=== PATIENT | female | born 1960 | race Caucasian/White ===

== ENCOUNTER → 2016-03-10 | Outpatient (CLI) | payer BC ==
[~2016-03-10] MED LIST: CARI-277 PO; GABA100C PO; LORA-655 OR
[2016-03-10 09:33] LABS: Basophils # (auto) 0 uL; Basophils % (auto) 0.3 % (0.0-2.0); DEFINITIVE VIEW TRANSMISSION; Eosinophils # (auto) 0.1 uL; Eosinophils % (auto) 2.2 % (0.0-7.0); Hemoglobin 13.3 g/dL (12.2-16.2); Lymphocytes % (auto) 25.8 % (10.0-50.0); Mean Corpuscular Hemoglobin 35.4 pg (28.0-32.0); Mean Corpuscular Hgb Conc. 34.1 g/dL (32.0-36.0); Mean Platelet Volume 7.5 fL (7.4-10.4); Monocytes # (auto) 0.3 uL; Monocytes % (auto) 7.9 % (0.0-12.0); Neutrophils # (auto) 2.4 uL; Neutrophils % (auto) 63.8 % (37.0-80.0); Platelet Count (auto) 291 10^3/uL (140-450); Red Cell Distribution Width 14.6 % (11.6-16.0); White Blood Cell 3.7 10^3/uL (4.4-10.8)
[2016-03-10 09:42] LABS: Albumin 3.8 g/dL (3.4-5.0); BUN/Creatinine Ratio 27.4; Bilirubin, Total 0.5 mg/dL (0.2-1.0); Calcium 8.4 mg/dL (8.5-10.1); Potassium 3.9 mmol/L (3.5-5.1); Total Protein 8.2 g/dL (6.4-8.2)
[2016-03-10 10:00] LABS: Urine Bilirubin Negative (Negative); Urine Blood TRACE /uL (Negative); Urine Color Yellow (Yellow); Urine Glucose Normal (Normal); Urine Ketone Negative (Negative); Urine Mucus FEW (None Seen); Urine Nitrite Negative (Negative); Urine RBC 6 /hpf (0 - 4); Urine Squamous Epithelial Cell FEW /hpf (<5); Urine Urobilinogen Normal (Negative)
== END | disposition home or self-care (01) ==
LOC: LAB 08:40
DX: F41.9 Anxiety disorder, unspecified (principal); M79.7 Fibromyalgia; M05.9 Rheumatoid arthritis with rheumatoid factor, unspecified; D64.9 Anemia, unspecified; M06.9 Rheumatoid arthritis, unspecified; I10 Essential (primary) hypertension; M25.50 Pain in unspecified joint
CPT/HCPCS: 36415; 80053; 80061; 81001; 82306; 82607; 83036; 84443; 85025; 85049; 85652; 86141

== ENCOUNTER → 2016-04-14 | Outpatient (CLI) | payer BC ==
[~2016-04-14] MED LIST changes: +IBU800T PO; +TOPI25TA84 PO
[2016-04-14 09:34] LABS: Urine Bilirubin Negative (Negative); Urine Blood TRACE /uL (Negative); Urine Color Yellow (Yellow); Urine Glucose Normal (Normal); Urine Ketone Negative (Negative); Urine Mucus FEW (None Seen); Urine Nitrite Negative (Negative); Urine RBC 3 /hpf (0 - 4); Urine Squamous Epithelial Cell FEW /hpf (<5); Urine Urobilinogen Normal (Negative)
[2016-04-14 09:43] LABS: INR 1.04 (0.9-1.15); Partial Thromboplastin Time 27.1 sec (22.64-33.71); Prothrombin Time 10.7 sec (9.37-12.3)
[2016-04-14 09:59] LABS: Albumin 3.5 g/dL (3.4-5.0); BUN/Creatinine Ratio 26.8; Bilirubin, Total 0.3 mg/dL (0.2-1.0); Calcium 8.4 mg/dL (8.5-10.1); Potassium 3.6 mmol/L (3.5-5.1); Total Protein 8.1 g/dL (6.4-8.2)
[2016-04-14 10:17] LABS: Basophils # (auto) 0 uL; Basophils % (auto) 0.7 % (0.0-2.0); DEFINITIVE VIEW TRANSMISSION; Eosinophils # (auto) 0.1 uL; Eosinophils % (auto) 2.3 % (0.0-7.0); Hematocrit 38.2 % (36.0-46.0); Hemoglobin 12.9 g/dL (12.2-16.2); Lymphocytes % (auto) 27.9 % (10.0-50.0); Mean Corpuscular Hemoglobin 35.5 pg (28.0-32.0); Mean Corpuscular Hgb Conc. 33.7 g/dL (32.0-36.0); Mean Corpuscular Volume 105.5 fL (80.0-100.0); Mean Platelet Volume 7.7 fL (7.4-10.4); Monocytes # (auto) 0.3 uL; Monocytes % (auto) 8.4 % (0.0-12.0); Neutrophils # (auto) 2.2 uL; Neutrophils % (auto) 60.7 % (37.0-80.0); Platelet Count (auto) 261 10^3/uL (140-450); Red Cell Distribution Width 14.2 % (11.6-16.0); White Blood Cell 3.6 10^3/uL (4.4-10.8)
== END | disposition home or self-care (01) ==
LOC: LAB 08:49
PROVIDERS: ATTEND Internal Medicine Gastroenterology
DX: Z01.812 Encounter for preprocedural laboratory examination (principal)
CPT/HCPCS: 36415; 80053; 81001; 85025; 85610; 85730

== ENCOUNTER → 2016-04-18 | Day surgery (SDC) | payer BC ==
[~2016-04-18] VITALS: Ht 162.6 cm; Wt 79.4 kg
[~2016-04-18] MED LIST changes: +MIDAZOLAM HCL 1MG/1ML-2 ML VIAL ONE; +PROPOFOL 10 MG/ML 20 ML IV ONE; +fentaNYL CITRATE 100 MCG/2 ML VL ONE
[2016-04-18 10:05] VITALS: BP 127/75
== END | disposition home or self-care (01) ==
LOC: GI 07:34
PROVIDERS: ATTEND Internal Medicine Gastroenterology
DX: K44.9 Diaphragmatic hernia without obstruction or gangrene (principal); E66.9 Obesity, unspecified; F41.9 Anxiety disorder, unspecified
CPT/HCPCS: 43239; J2250; J2704

== ENCOUNTER 2016-07-26 16:23 | Emergency (ER) | payer BC ==
[~2016-07-26] VITALS: Ht 160 cm; Wt 78.0 kg
[~2016-07-26 16:23] MED LIST changes: -IBU800T PO; +IBUP800T24 PO; -MIDAZOLAM HCL 1MG/1ML-2 ML VIAL ONE; -PROPOFOL 10 MG/ML 20 ML IV ONE; -fentaNYL CITRATE 100 MCG/2 ML VL ONE
[2016-07-26] MEDS: HYDROmorphone HCL 2 MG/ML VL IV ONE ×2 (16:46→19:38)
[2016-07-26] MEDS: ONDANSETRON HCL 4 MG/2 ML VIAL IV ONE (16:46)
[2016-07-26 17:31] LABS: Basophils # (auto) 0 uL; Basophils % (auto) 0.4 % (0.0-2.0); DEFINITIVE VIEW TRANSMISSION; Eosinophils # (auto) 0 uL; Hematocrit 37.8 % (36.0-46.0); Hemoglobin 12.9 g/dL (12.2-16.2); Lymphocytes # (auto) 1.8 uL; Lymphocytes % (auto) 38.4 % (10.0-50.0); Mean Corpuscular Hemoglobin 35.7 pg (28.0-32.0); Mean Corpuscular Hgb Conc. 34.1 g/dL (32.0-36.0); Mean Corpuscular Volume 104.5 fL (80.0-100.0); Mean Platelet Volume 7.9 fL (7.4-10.4); Monocytes # (auto) 0.3 uL; Monocytes % (auto) 6.1 % (0.0-12.0); Neutrophils # (auto) 2.5 uL; Neutrophils % (auto) 54.1 % (37.0-80.0); Platelet Count (auto) 297 10^3/uL (140-450); Red Cell Distribution Width 14.2 % (11.6-16.0); White Blood Cell 4.7 10^3/uL (4.4-10.8)
[2016-07-26 17:42] LABS: Alkaline Phosphatase 87 U/L (45-117); Anion Gap 10 (5-15); Aspartate Aminotransferase 33 U/L (15-37); BUN/Creatinine Ratio 36.9; Bilirubin, Total 0.4 mg/dL (0.2-1.0); Blood Urea Nitrogen 24 mg/dL (7-18); Calcium 8.5 mg/dL (8.5-10.1); Carbon Dioxide 25 mmol/L (21-32); Chloride 102 mmol/L (98-107); GFR African American 122 mL/min; GFR Non-African American 101 mL/min; Glucose 107 mg/dL (74-106); Potassium 3.7 mmol/L (3.5-5.1); Sodium 137 mmol/L (136-145); Total Protein 8.3 g/dL (6.4-8.2)
[2016-07-26] MEDS: IOHEXOL 300 MG/ML 100ML BOTTLE IJ ONE (18:17)
[2016-07-26 18:36] VITALS: BP 148/70
[2016-07-26 19:24] LABS: Macrocytosis Slight; Platelet Estimate Adequate
== END 2016-07-26 19:47 | disposition home or self-care (01) ==
LOC: EDUNIT# 16:23 → EDBD 16:23 → ER 16:51
DX: S22.32XA Fracture of one rib, left side, initial encounter for closed fracture (principal); R11.0 Nausea; Z88.8 Allergy status to other drugs, medicaments and biological substances; Z79.899 Other long term (current) drug therapy; M06.9 Rheumatoid arthritis, unspecified; M54.9 Dorsalgia, unspecified; M25.519 Pain in unspecified shoulder; Z90.710 Acquired absence of both cervix and uterus; V43.62XA Car passenger injured in collision with other type car in traffic accident, initial encounter; Y93.89 Activity, other specified; Y92.89 Other specified places as the place of occurrence of the external cause; Y99.8 Other external cause status; Z85.41 Personal history of malignant neoplasm of cervix uteri
CPT/HCPCS: 36415; 71260; 74177; 80053; 84484; 85025; 93005; 94761; 96374; 96375; 96376; 99285; J1170; J2405; Q9967

== ENCOUNTER → 2016-08-31 | Outpatient (CLI) | payer BC | END | disposition home or self-care (01) | LOC: XYW 08:09 | PROVIDERS: ATTEND Internal Medicine Cardiovascular Disease | DX: R00.2 Palpitations (principal) | CPT/HCPCS: 93306 ==

== ENCOUNTER → 2017-02-02 | Outpatient (CLI) | payer BC | END | disposition home or self-care (01) | LOC: LAB 09:43 | PROVIDERS: ATTEND Internal Medicine Cardiovascular Disease | DX: I10 Essential (primary) hypertension (principal); R07.89 Other chest pain | CPT/HCPCS: 36415; 85379 ==

== ENCOUNTER → 2017-06-15 | Outpatient (CLI) | payer BC ==
[2017-06-15 08:24] LABS: Basophils # (auto) 0 uL; Eosinophils # (auto) 0.1 uL; White Blood Cell 3.6 10^3/uL (4.4-10.8)
[2017-06-15 08:26] LABS: Eosinophils % (auto) 3.7 % (0.0-7.0); Hematocrit 39.5 % (36.0-46.0); Hemoglobin 13.3 g/dL (12.2-16.2); Lymphocytes % (auto) 28.9 % (10.0-50.0); Mean Corpuscular Hemoglobin 36.4 pg (28.0-32.0); Mean Corpuscular Hgb Conc. 33.7 g/dL (32.0-36.0); Mean Corpuscular Volume 108.2 fL (80.0-100.0); Monocytes # (auto) 0.4 uL; Neutrophils % (auto) 56.4 % (37.0-80.0); Nucleated Red Blood Cells % 0.2 %; Platelet Count (auto) 253 10^3/uL (140-450); Red Blood Cells 3.65 10^6/uL (4.0-5.20); Red Cell Distribution Width 13.5 % (11.8-14.3)
[2017-06-15 08:45] LABS: Albumin 3.8 g/dL (3.4-5.0); BUN/Creatinine Ratio 22.2; Bilirubin, Total 0.5 mg/dL (0.2-1.0); Calcium 8.9 mg/dL (8.5-10.1); Total Protein 8.4 g/dL (6.4-8.2)
[2017-06-15 08:51] LABS: Urine Bacteria NONE SEEN /hpf (None Seen); Urine Blood 1+ /uL (Negative); Urine Mucus FEW (None Seen); Urine Specific Gravity 1.027 (1.001-1.035); Urine WBC <1 /hpf (0 - 5)
== END | disposition home or self-care (01) ==
LOC: LAB 07:38
PROVIDERS: ATTEND Physician Assistant
DX: I10 Essential (primary) hypertension (principal); M25.50 Pain in unspecified joint; E55.9 Vitamin D deficiency, unspecified; M79.2 Neuralgia and neuritis, unspecified
CPT/HCPCS: 36415; 80053; 80061; 81001; 82306; 85025

== ENCOUNTER 2018-08-06 13:50 | Emergency (ER) | payer BC ==
[~2018-08-06] VITALS: Ht 162.6 cm; Wt 77.1 kg
[2018-08-06 14:54] VITALS: BP 118/61
== END 2018-08-06 15:08 | disposition home or self-care (01) ==
LOC: EEVIPCON 13:50 → ER 13:54
DX: S52.501A Unspecified fracture of the lower end of right radius, initial encounter for closed fracture (principal); Z88.1 Allergy status to other antibiotic agents; Z90.710 Acquired absence of both cervix and uterus; W01.0XXA Fall on same level from slipping, tripping and stumbling without subsequent striking against object, initial encounter; Y93.89 Activity, other specified; Y99.8 Other external cause status; Y92.002 Bathroom of unspecified non-institutional (private) residence as the place of occurrence of the external cause
CPT/HCPCS: 29125; 73110

== ENCOUNTER → 2018-10-09 | Outpatient (CLI) | payer BC ==
[2018-10-09 10:41] LABS: Basophils # (auto) 0 uL; Lymphocytes # (auto) 0.7 uL; Monocytes # (auto) 0.3 uL; Neutrophils # (auto) 2.1 uL; Nucleated Red Blood Cells % 0.2 %; White Blood Cell 3.2 10^3/uL (4.4-10.8)
[2018-10-09 10:43] LABS: Basophils % (auto) 0.7 % (0.0-2.0); Eosinophils # (auto) 0.1 uL; Eosinophils % (auto) 1.6 % (0.0-7.0); Hematocrit 41.2 % (36.0-46.0); Hemoglobin 14.2 g/dL (12.2-16.2); Lymphocytes % (auto) 22.4 % (10.0-50.0); Mean Corpuscular Hemoglobin 36.3 pg (28.0-32.0); Mean Corpuscular Hgb Conc. 34.4 g/dL (32.0-36.0); Mean Corpuscular Volume 105.6 fL (80.0-100.0); Monocytes % (auto) 9.8 % (0.0-12.0); Neutrophils % (auto) 65.5 % (37.0-80.0); Platelet Count (auto) 321 10^3/uL (140-450); Red Cell Distribution Width 14.3 % (11.8-14.3)
[2018-10-09 11:17] LABS: Free T4 (Free Thyroxine) 0.88 ng/dL (0.89-1.76)
[2018-10-09 11:18] LABS: T3 Total 0.83 ng/mL (0.60-1.81)
[2018-10-09 11:24] LABS: Potassium 3.7 mmol/L (3.5-5.1)
[2018-10-09 11:30] LABS: Albumin 3.5 g/dL (3.4-5.0); BUN/Creatinine Ratio 14.8; Bilirubin, Total 0.6 mg/dL (0.2-1.0); Calcium 8.8 mg/dL (8.5-10.1); Total Protein 8.7 g/dL (6.4-8.2)
== END | disposition home or self-care (01) ==
LOC: LAB 10:03
PROVIDERS: ATTEND Physician Assistant
DX: R42 Dizziness and giddiness (principal); I10 Essential (primary) hypertension
CPT/HCPCS: 36415; 80053; 84439; 84443; 84480; 85025; 85652; 86038; 86200; 86431

== ENCOUNTER 2019-11-23 13:28 | Emergency (ER) | payer BC, OTHER ==
[~2019-11-23] VITALS: Ht 162.6 cm; Wt 79.4 kg
[2019-11-23 13:39] VITALS: BP 148/99
[2019-11-23] MEDS ORDERED: HYDROcodone-ACET 7.5/325MG TAB PO ONE (14:15)
[2019-11-23] MEDS ORDERED: KETOROLAC TROMETH 60MG/2ML VIAL IM ONE (14:15)
[2019-11-23] MEDS ORDERED: HYDROcodone-ACET 10/325MG TAB PO ONE (14:30)
== END 2019-11-23 14:55 | disposition home or self-care (01) ==
LOC: ER 13:28
DX: S22.41XA Multiple fractures of ribs, right side, initial encounter for closed fracture (principal); S46.811A Strain of other muscles, fascia and tendons at shoulder and upper arm level, right arm, initial encounter; N30.00 Acute cystitis without hematuria; K76.0 Fatty (change of) liver, not elsewhere classified; Z88.8 Allergy status to other drugs, medicaments and biological substances; Z79.899 Other long term (current) drug therapy; Z90.710 Acquired absence of both cervix and uterus; Z85.41 Personal history of malignant neoplasm of cervix uteri; W01.198A Fall on same level from slipping, tripping and stumbling with subsequent striking against other object, initial encounter; Y93.89 Activity, other specified; Y92.89 Other specified places as the place of occurrence of the external cause; Y99.8 Other external cause status
CPT/HCPCS: 71250; 73030; 74176; 81002; 96372; 99285; J1885

== ENCOUNTER 2021-12-19 19:51 | Emergency (ER) | payer BC, OTHER ==
[~2021-12-19] VITALS: Ht 160 cm; Wt 77.2 kg
[2021-12-19 19:51] VITALS: BP 133/94
[~2021-12-19 19:51] MED LIST changes: -IBUP800T24 PO; +IBUP800T26 PO
[2021-12-19] MEDS ORDERED: ONDANSETRON ODT 4 MG TAB PO ONE (20:45)
[2021-12-19 20:55] LABS: Basophils # (auto) 0 10 ^3/uL (0-0.2); Eosinophils # (auto) 0 10 ^3/uL (0-0.8); Hemoglobin 14.7 g/dL (12.2-16.2); Mean Corpuscular Volume 108.6 fL (80.0-100.0); Monocytes # (auto) 0.2 10 ^3/uL (0-1.3); Neutrophils # (auto) 2.3 10 ^3/uL (1.6-8.6); Nucleated Red Blood Cells % 0.1 %
[2021-12-19 20:57] LABS: Basophils % (auto) 0.4 % (0.0-2.0); Eosinophils % (auto) 1.1 % (0.0-7.0); Hematocrit 42.2 % (36.0-46.0); Lymphocytes # (auto) 0.6 10 ^3/uL (0.4-5.4); Lymphocytes % (auto) 17.6 % (10.0-50.0); Mean Corpuscular Hemoglobin 37.9 pg (28.0-32.0); Mean Corpuscular Hgb Conc. 34.9 g/dL (32.0-36.0); Monocytes % (auto) 7.5 % (0.0-12.0); Neutrophils % (auto) 73.4 % (37.0-80.0); Red Blood Cells 3.89 10^6/uL (4.0-5.20); Red Cell Distribution Width 14.1 % (11.8-14.3); White Blood Cell 3.2 10^3/uL (4.4-10.8)
[2021-12-19 21:13] LABS: Albumin 3.6 g/dL (3.4-5.0); Calcium 8.7 mg/dL (8.5-10.1); Potassium 3.7 mmol/L (3.5-5.1)
[2021-12-19 21:17] LABS: BUN/Creatinine Ratio 8.3; Bilirubin, Total 0.7 mg/dL (0.2-1.0); Total Protein 8.1 g/dL (6.4-8.2)
[2021-12-19] MEDS ORDERED: ONDANSETRON HCL 4 MG/2 ML VIAL IV ONE (21:45)
== END 2021-12-19 23:04 | disposition home or self-care (01) ==
LOC: ER 19:53
DX: R79.89 Other specified abnormal findings of blood chemistry (principal); K22.0 Achalasia of cardia; R41.82 Altered mental status, unspecified; Z90.710 Acquired absence of both cervix and uterus; Z88.6 Allergy status to analgesic agent
CPT/HCPCS: 36415; 70450; 71045; 74176; 80053; 83690; 83880; 84484; 85025; 93005; 96374; 99285; J2405; J7030

== ENCOUNTER 2024-10-15 10:00 | Outpatient (CLI) | payer BC ==
[~2024-10-15 10:00] MED LIST changes: +DOXY-111 PO; +FLUO-470 PO; +HYDR25TA4 PO; +IBUP-1455 PO; -IBUP800T26 PO; +NAPR-746 PO; +PERCOT PO; +PROP60CA34 PO; -TOPI25TA84 PO; +TRAZ-227 PO
== END 2024-10-15 17:00 | disposition home or self-care (01) ==
LOC: LAB 10:00
PROVIDERS: ATTEND Podiatrist
DX: M70.22 Olecranon bursitis, left elbow (principal)
CPT/HCPCS: 87070; 87075; 87205

== ENCOUNTER → 2025-01-01 | Outpatient (CLI) | payer BC ==
[2025-01-01 13:09] LABS: Urine Protein, UAD TRACE (Negative)
== END | disposition home or self-care (01) ==
LOC: LAB 12:49
PROVIDERS: ATTEND Internal Medicine
DX: I10 Essential (primary) hypertension (principal); Z79.899 Other long term (current) drug therapy
CPT/HCPCS: 81001; 87086

== ENCOUNTER 2025-01-08 12:31 | Inpatient (IN) | payer BC ==
[~2025-01-08] VITALS: Ht 157.5 cm; Wt 79.6 kg
--- NOTE | 2025-01-08 14:57 | ED.PDOC ---
Musculoskeletal HPI Comments This is a 64 year old female presenting to the ED with chief complaint of bilateral lower extremity swelling. Patient reports that she has been having worsening bilateral lower extremity swelling for the past few days, worse on her left leg. Patient relays that she had a previous tibial fracture to her left leg along with a surgery to repair it by Dr. Vogt 9 weeks ago. Patient states that she was given an US order by Dr. Avalos and today she was told her results show DVTs in her bilateral legs, advising her to come to the ED for further treatment. Patient denies any chest pain, SOB, dizziness, redness, or numbness. Chief Complaint: Lower Extremity Time Seen by MD: 14:51 Primary Care Provider: ALAN Reviewed Notes: Nurses Notes, Medications, Allergies Allergies: Coded Allergies: Prochlorperazine (Verified Allergy, Severe, Dystonia, 05/28/23) Home Meds Active Scripts Apixaban Base (ELIQUIS) 5 Mg Tab, 10 MG PO BID for 7 Days, #14 TAB 10MG BID X 7 DAYS THEN 5MG PO BID FOR AT LEAST 6 MONTHS FOR DVT/PE TREATMENT Prov:CALLUM DRIVER RESIDENT 01/11/25 Apixaban Base (ELIQUIS) 5 Mg Tab, 5 MG PO BID for 90 Days, #180 TAB 1 Refill Prov:CALLUM DRIVER RESIDENT 01/11/25 Doxycycline Monohydrate (Doxycycline Monohydrate) 100 Mg Tab, 100 MG PO BID for 45 Days, #90 TAB Prov:DAI AZEVEDO RESIDENT 05/29/23 Oxycodone W/ Acetaminophen (Percocet 5/325MG) 1 Tab Tb, 1 TAB PO BID for 14 Da ys, #28 TAB Prov:ANTOINE CURRY MD 05/29/23 Fluoxetine HCl (Fluoxetine HCl) 20 Mg Cap, 20 MG PO DAILY for 90 Days, #90 CAP Prov:DAI AZEVEDO 05/29/23 Naproxen (Naproxen) 500 Mg Tab, 500 MG PO Q6HP PRN for 10 Days, #40 TAB Prov:NEETA FAITH DO 05/23/23 Trazodone Hcl (Trazodone Hcl) 50 Mg Tab, 50 MG PO HS for 30 Days, #30 TAB 1 Refill Prov:NEETA FAITH DO 05/23/23 Reported Medications Potassium Chloride (Klor-Con M20) 20 Meq Tab, 20 MEQ PO BID, TAB 01/09/25 Bumetanide (Bumex) 2 Mg Tab, 1 MG PO BID 01/09/25 Propranolol HCl (Propranolol Hydrochloride) 10 Mg Tab, 10 MG PO BID, TAB 01/09/25 Oxycodone W/ Acetaminophen (Percocet 5/325MG) 1 Tab Tb, 1 TAB PO TID, #90 TAB 01/09/25 Propranolol Hcl (Inderal La) 60 Mg Cap, 20 MG PO DAILY, CAP 05/20/23 Hydrochlorothiazide (Hydrochlorothiazide) 25 Mg Tab, 1 TAB PO DAILY, #30 TAB 5 Refills 05/20/23 Ibuprofen Micronized (Ibuprofen) 800 Mg Tab, 800 MG PO TIDP PRN for MODERATE PAIN, TAB 04/14/16 Carisoprodol (Soma) 350 Mg Tab, 350 MG PO BIDP PRN for FOR MUSCLE SPASM, TAB 03/20/15 Lorazepam (Ativan) 0.5 Mg Tab, 1 MG OR BIDP PRN for ANXIETY, TAB 03/20/15 Gabapentin (Neurontin) 100 Mg Cap, 1 CAP PO TID, #90 CAP 2 Refills 03/20/15 Information Source: Patient Mode of Arrival: Wheelchair Location: Bilateral Extremity Location: Leg Timing: Days Prehospital treatment: None Severity: Moderate Able to Move Extremity: Yes Bear Weight: Limited Pain: Moderate Mechanism: Spontaneous Circumstances: Spontaneous Onset of Symptoms: Spontaneous Symptoms: Swelling, Pain DVT Risk Factors: NONE Last Tetanus: Unknown Past Medical History PAST MEDICAL HISTORY: Anxiety Past Medical History (Other): DVT Surgical History: Hysterectomy RO[employer] History: Cervical Cancer Family History Family History: Reviewed,noncontributory to illness Social History Smoker: Non-Smoker Alcohol: Denies ETOH Use Drugs: Denies Drug Use Lives In: Home Constitutional: denies: chills, diaphoresis, fatigue, fever, malaise, sweats, weakness, others EENTM: denies: blurred vision, double vision, ear bleeding, ear discharge, ear drainage, ear pain, ear ringing, eye pain, eye redness, hearing loss, mouth pain, mouth swelling, nasal discharge, nose bleeding, nose congestion, nose pain, photophobia, tearing, throat pain, throat swelling, voice changes, others Respiratory: denies: cough, hemoptysis, orthopnea, SOB at rest, shortness of breath, SOB with excertion, stridor, wheezing, others Cardiovascular: reports: edema; denies: chest pain, dizzy spells, diaphoresis, Dyspnea on exertion, irregular heart beat, left arm pain, lightheadedness, palpitations, PND, syncope, others Gastrointestinal: denies: abdomen distended, abdominal pain, blood streaked bowels, constipated, diarrhea, dysphagia, difficulty swallowing, hematemesis, melena, nausea, poor appetite, poor fluid intake, rectal bleeding, rectal pain, vomiting, others Genitourinary: denies: abnormal vagina bleeding, burning, dyspareunia, dysuria, flank pain, frequency, hematuria, incontinence, pain, , vagina discharge, urgency, others Neurological: denies: dizziness, fainting, headache, left sided numbness, left sided weakness, numbness, paresthesia, pre-existing deficit, right sided numbness, right sided weakness, seizure, speech problems, tingling, tremors, weakness, others Musculoskeletal: reports: others (Bilateral leg pain); denies: back pain, gout, joint pain, joint swelling, muscle pain, muscle stiffness, neck pain Integumetry: denies: bruises, change in color, change in hair/nails, dryness, laceration, lesions, lumps, rash, wounds, others Allergic/Immunocompromised: denies: Difficulty Healing, Frequent Infections, Hives, Itching, others Hematologic/Lymphatic: denies: anemia, blood clots, easy bleeding, easy bruising, swollen glands, others Endocrine: denies: excessive hunger, excessive sweating, excessive thirst, excessive urination, flushing, intolerance to cold, intolerance to heat, unexplained weight gain, unexplained weight loss, others Psychiatric: denies: anxiety, bipolar disorder, depression, hopeless, panic disorder, schizophrenia, sleepless, suicidal, others All Other Systems: Reviewed and Negative Physical Exam General Appearance: No Apparent Distress, Normal HEENT: Normal ENT Inspection, Pharynx Normal, TMs Normal Neck: Full Range of Motion, Non-Tender, Normal, Normal Inspection Respiratory: Chest Non-Tender, Lungs Clear, No Accessory Muscle Use, No Respiratory Distress, Normal Breath Sounds Cardiovascular: No Edema, No JVD, No Murmur, No Gallop, Normal Peripheral Pulses, Regular Rate/Rhythm Breast Exam: Deferred Gastrointestinal: No Organomegaly, Non Tender, No Pulsatile Mass, Normal Bowel Sounds, Soft Genitalia: Deferred Pelvic: Deferred Rectal: Deferred Extremities: Other (Bilateral lower extremity edema 2+) Musculoskeletal : Apperance: Normal Neurologic: Alert, oil analyst II-XII nml as Tested, No Motor Deficits, Normal Affect, Normal Mood, No Sensory Deficits Cerebellar Function: Normal Reflexes: Normal Skin: Dry, Normal Color, Warm Lymphatic: No Adenopathy Was a procedure done? Was a procedure done?: No Differential Diagnosis EXT Differential Diagnosis: Deep Vein Thrombosis X-Ray, Labs, Meds, VS Vital Signs Date Time Temp Pulse Resp B/P (MAP) Pulse Ox O2 Delivery O2 Flow Rate FiO2 01/08/25 17:15 82 01/08/25 17:12 81 20 150/60 (90) 99 01/08/25 17:12 81 20 150/60 01/08/25 17:12 81 20 99 Room Air* 0 21 01/08/25 12:32 97.0 82 18 143/84 96 97.0 Lab Test 01/08/25 17:03 01/08/25 14:54 Range/Units Urine Color Yellow Yellow Urine Clarity Clear Clear Urine pH 7.0 5.0-9.0 Urine Specific [place] 1.023 1.001-1.035 Urine Protein Trace H Negative Urine Ketones Trace Negative Urine Blood Negative Negative /uL Urine Nitrite Negative Negative Urine Bilirubin Negative Negative Urine Urobilinogen Normal Negative mg/dL Urine Leukocyte Esterase Negative Negative /uL Urine RBC 4 0 - 4 /hpf Urine Microscopic WBC 1 0-5 /HPF Urine Squamous Epithelial Cells Few <5 /hpf Urine Bacteria None seen None Seen /hpf Urine Hyaline Casts Few 0 - 2 /lpf Urine Glucose Normal Normal mg/dL Urine Opiates Screen Neg NEGATIVE Urine Fentanyl Screen Neg NEGATIVE Urine Barbiturates Screen Neg NEGATIVE Urine Phencyclidine Screen Neg NEGATIVE Urine Amphetamines Screen Neg NEGATIVE Urine Benzodiazepines Screen Pos NEGATIVE Urine Cocaine Screen Neg NEGATIVE Urine Cannabinoids Screen Pos NEGATIVE White Blood Count 4.9 4.4-10.8 10^3/uL Red Blood Count 4.06 4.0-5.20 10^6/uL Hemoglobin 15.8 12.2-16.2 g/dL Hematocrit 44.5 36.0-46.0 % Mean Corpuscular Volume 109.5 H 80.0-100.0 fL Mean Corpuscular Hemoglobin 38.9 H 28.0-32.0 pg Mean Corpuscular Hemoglobin Concent 35.5 32.0-36.0 g/dL Red Cell Distribution Width 15.5 H 11.8-14.3 % Platelet Count 280 140-450 10^3/uL Mean Platelet Volume 7.2 6.9-10.8 fL Neutrophils (%) (Auto) 70.6 37.0-80.0 % Lymphocytes (%) (Auto) 19.2 10.0-50.0 % Monocytes (%) (Auto) 7.9 0.0-12.0 % Eosinophils (%) (Auto) 1.6 0.0-7.0 % Basophils (%) (Auto) 0.7 0.0-2.0 % Neutrophils # (Auto) 3.5 1.6-8.6 10 ^3/uL Lymphocytes # (Auto) 0.9 0.4-5.4 10 ^3/uL Monocytes # (Auto) 0.4 0-1.3 10 ^3/uL Eosinophils # (Auto) 0.1 0-0.8 10 ^3/uL Basophils # (Auto) 0 0-0.2 10 ^3/uL Nucleated Red Blood Cells 0.1 % Prothrombin Time 10.9 9.3-11.8 sec Prothrombin Time INR 1.03 0.9-1.15 Activated Partial Thromboplast Time 29.9 24.5-34.5 SEC Sodium Level 134 L 136-145 mmol/L Potassium Level 4.7 3.5-5.1 mmol/L Chloride Level 96 L 98-107 mmol/L Carbon Dioxide Level 29 20-31 mmol/L Anion Gap 9 5-15 Blood Urea Nitrogen 13 9-23 mg/dL Creatinine 0.68 0.550-1.02 mg/dL Glomerular Filtration Rate Calc 98 >90 mL/min BUN/Creatinine Ratio 19.1 10.0-20.0 Serum Glucose 112 H 74-106 mg/dL Calcium Level 9.8 8.7-10.4 mg/dL Troponin I High Sensitivity < 3 L </=34 ng/L B-Type Natriuretic Peptide 43.08 0-100 pg/mL Time of 1ST Reevaluation: 15:49 Reevaluation 1ST: Unchanged Patient Education/Counseling: Diagnosis, Treatment Family Education/Counseling: No Family Present Departure 1 Departure Time of Disposition: 13:29 (Patient with a acute bilateral lower extremity DVTs. We will admit patient for further workup and expert consultation) Impression: Primary Impression: DVT (deep venous thrombosis) Additional Impression: Lower leg pain Disposition: ADMITTED INPATIENT Admit to: Tele Condition: Guarded e-Prescriptions Apixaban Base (ELIQUIS) 5 Mg Tab 10 MG PO BID for 7 Days, #14 TAB 10MG BID X 7 DAYS THEN 5MG PO BID FOR AT LEAST 6 MONTHS FOR DVT/PE TREATMENT Prov: CALLUM DRIVER RESIDENT 01/11/25 Apixaban Base (ELIQUIS) 5 Mg Tab 5 MG PO BID for 90 Days, #180 TAB 1 Refill Prov: CALLUM DRIVER RESIDENT 01/11/25 Critical Care Note Critical Care Time?: No Stability Stability form required: No Heart Score Heart Score: Heart Score Response (Comments) Value History N/A 0 EKG N/A 0 Age N/A 0 Risk Factors N/A 0 Troponin N/A 0 Total 0 I personally scribed for NITA MARK MD ([email or web address]) on 01/08/25 at 14:57. Electronically submitted by Odilon Pizarro ([email or web address]). NITA MARK MD Jan 08, 2025 14:57
[2025-01-08 15:16] LABS: Nucleated Red Blood Cells % 0.1 %
[2025-01-08 15:18] LABS: Hematocrit 44.5 % (36.0-46.0); Hemoglobin 15.8 g/dL (12.2-16.2); Mean Corpuscular Hemoglobin 38.9 pg (28.0-32.0); Mean Corpuscular Volume 109.5 fL (80.0-100.0)
[2025-01-08 15:26] LABS: Potassium 4.7 mmol/L (3.5-5.1)
[2025-01-08 15:27] LABS: Anion Gap 9 (5-15); Carbon Dioxide 29 mmol/L (20-31)
[2025-01-08 15:28] LABS: Calcium 9.8 mg/dL (8.7-10.4)
[2025-01-08 15:32] LABS: BUN/Creatinine Ratio 19.1 (10.0-20.0); Blood Urea Nitrogen 13 mg/dL (9-23)
[2025-01-08 15:33] LABS: Chloride 96 mmol/L (98-107); Glucose 112 mg/dL (74-106); Sodium 134 mmol/L (136-145)
[2025-01-08 15:49] LABS: INR 1.03 (0.9-1.15); Partial Thromboplastin Time 29.9 SEC (24.5-34.5); Prothrombin Time 10.9 sec (9.3-11.8)
[2025-01-08] MEDS: ONDANSETRON HCL 4 MG/2 ML VIAL IV ONE ×2 (16:57→18:04)
[2025-01-08 17:12] VITALS: PULSE 81; RESP 20; O2SAT 99
[2025-01-08] MEDS: MORPHINE SULFATE 4 MG/ML SYR/VIAL IV ONE (17:12)
[2025-01-08 17:16] LABS: Urine Protein, UAD TRACE (Negative)
--- NOTE | 2025-01-08 17:40 | ECG ---
[facility] Test Date: 2025-01-08 Test Time: 17:15:55 Pat Name: SIA MATA Department: ED Room: [address] [place] [address] Gender: F Grain Elevator Operator: ER : [id number] Requested By: NITA MARK Order Number: [id number] Reading MD: Len Acevedo Measurements Intervals [place] Rate: 82 P: 88 RI: 147 QRS: 100 QRSD: 94 T: 37 QT: 397 QTc: 464 Interpretive Statements Sinus rhythm Right atrial enlargement Right ventricular hypertrophy Baseline wander in lead(s) I,II,III,aVR,aVL,V1 Electronically Signed On 01-08-2025 18:55:53 PST by Len Acevedo Please click the below link to view image of tracing.
[2025-01-08] MEDS: ONDANSETRON HCL 4 MG/2 ML VIAL ONE (17:58)
[2025-01-08 18:00] VITALS: PULSE 87; RESP 16; O2SAT 95
[2025-01-08] MEDS: HYDROmorphone HCL 2 MG/ML VL/or syr IV ONE (18:00)
[2025-01-08] MEDS: HEPARIN SODIUM (PORCINE) 5000 UNITS/ML 1ML VIAL IV ONE (18:43)
[2025-01-08] MEDS: HEPARIN DRIP/D5W 100UNITS/ML 250 ML IV SCH (18:43)
--- NOTE | 2025-01-08 18:52 | CONS ---
Pharmacy Clinical Information: HEPARIN PER PHARMACY SPOKE TO RHYS BALLESTEROS REGARDING NEW heparin DRIP ORDER CURRENT aPTT: 29.9 on 01/08/2025 at 14:54 BOLUS: 5000 UNITS INITIAL heparin drip rate: 1400 units/hr Date and time new dose started: waiting for RN document Next aPTT: RHYS BALLESTEROS READ BACK NEW DOSE: 1400 UNITS/HR MARCELLO Hickman Jan 08, 2025 18:52
[2025-01-08] MEDS: PANTOPRAZOLE 40 MG TAB PO ONE (18:59)
--- NOTE | 2025-01-08 19:09 | DVHHPRES ---
History of Present Illness Resident Creating Document: PANCHITO BROWN RESIDENT History of Present Illness Patient is a 64-year-old female with a medical history of anxiety, recent left tibial fracture status post ORIF presented to the hospital after she underwent a bilateral lower extremity venous duplex today at [facility] Radiology which showed bilateral DVT. Patient reports about 9 weeks ago she had a mechanical fall following which she had a left tibial fracture and underwent a or if and was discharged home. She started to notice bilateral lower extremity swelling a few weeks ago which initially she thought was likely due to dependent edema but since it was getting worse she contacted her PCP who recommended getting a lower extremity venous duplex today which showed right and left femoral vein, popliteal vein thrombosis. Patient denied shortness of breath, chest pain. Initial EKG showed sinus rhythm with right axis deviation, probable right ventricular hypertrophy but she did not have any tachycardia. Past medical history: Anxiety, pulmonary nodule Surgical history: Left tibia ORIF Social history: Patient has 10 pack smoking history, currently smokes, denies alcohol or any other drug use Home medications: Propranolol 10 mg b.i.d. Review of Systems Review of Systems Patient seen and examined at bedside Reports of [id number] pain in the left lower extremity [id number] Feels anxious, and has substernal chest pain which is nonradiating Denies nausea, vomiting, abdominal pain, dysuria Allergies: Coded Allergies: Prochlorperazine (Verified Allergy, Severe, Dystonia, 05/28/23) Medications Current Medications Medications Dose Ordered Sig/Alida Route Start Time Stop Time Status Last Admin Dose Admin Heparin Sodium/ Dextrose 250 ml @ 14 mls/hr [id number] IV 01/08/25 15:15 01/08/25 18:43 14 MLS/HR Pantoprazole Sodium 40 mg DAILY@0600 PO 01/09/25 06:00 Hydromorphone HCl 1 mg Q6HPRN PRN IV 01/08/25 18:30 Acetaminophen/ Hydrocodone Bitart 1 tab Q6HP PRN PO 01/08/25 18:30 Ondansetron HCl 4 mg Q6HPRN PRN IV 01/08/25 18:30 Exam Vital Signs Vital Signs Date Time Temp Pulse Resp B/P (MAP) Pulse Ox O2 Delivery O2 Flow Rate FiO2 01/08/25 18:00 90 18 162/72 01/08/25 17:12 99 01/08/25 17:12 Room Air* 0 21 01/08/25 12:32 97.0 97.0 Exam Skin - Patients skin is warm and dry. HEENT - normocephalic, atraumatic, moist mucous membranes, no icterus, no pallor. Neck - full ROM, no LAD, no JVD Pulmonary - B/L clear breath sounds cardiovascular - regular S1,S2 heard, no added sounds, no murmurs heard. peripheral pulses normal radial 2+, pedal 2+. capillary refill normal <2 secs. GI - soft, nontender abdomen. no hepatospleenomegaly. Bowel sounds normoactive Neurological - Patient is A/O X 4 . Bilateral upper extremity strength 5/5, bilateral lower extremity strength 5/5, no facial droop, normal speech, no tremor, no sensory deficiets. Labs/Xrays Labs Test 01/08/25 17:03 01/08/25 14:54 Range/Units Urine Color Yellow Yellow Urine Clarity Clear Clear Urine pH 7.0 5.0-9.0 Urine Specific [place] 1.023 1.001-1.035 Urine Protein Trace H Negative Urine Ketones Trace Negative Urine Blood Negative Negative /uL Urine Nitrite Negative Negative Urine Bilirubin Negative Negative Urine Urobilinogen Normal Negative mg/dL Urine Leukocyte Esterase Negative Negative /uL Urine RBC 4 0 - 4 /hpf Urine Microscopic WBC 1 0-5 /HPF Urine Squamous Epithelial Cells Few <5 /hpf Urine Bacteria None seen None Seen /hpf Urine Hyaline Casts Few 0 - 2 /lpf Urine Glucose Normal Normal mg/dL White Blood Count 4.9 4.4-10.8 10^3/uL Red Blood Count 4.06 4.0-5.20 10^6/uL Hemoglobin 15.8 12.2-16.2 g/dL Hematocrit 44.5 36.0-46.0 % Mean Corpuscular Volume 109.5 H 80.0-100.0 fL Mean Corpuscular Hemoglobin 38.9 H 28.0-32.0 pg Mean Corpuscular Hemoglobin Concent 35.5 32.0-36.0 g/dL Red Cell Distribution Width 15.5 H 11.8-14.3 % Platelet Count 280 140-450 10^3/uL Mean Platelet Volume 7.2 6.9-10.8 fL Neutrophils (%) (Auto) 70.6 37.0-80.0 % Lymphocytes (%) (Auto) 19.2 10.0-50.0 % Monocytes (%) (Auto) 7.9 0.0-12.0 % Eosinophils (%) (Auto) 1.6 0.0-7.0 % Basophils (%) (Auto) 0.7 0.0-2.0 % Neutrophils # (Auto) 3.5 1.6-8.6 10 ^3/uL Lymphocytes # (Auto) 0.9 0.4-5.4 10 ^3/uL Monocytes # (Auto) 0.4 0-1.3 10 ^3/uL Eosinophils # (Auto) 0.1 0-0.8 10 ^3/uL Basophils # (Auto) 0 0-0.2 10 ^3/uL Nucleated Red Blood Cells 0.1 % Prothrombin Time 10.9 9.3-11.8 sec Prothrombin Time INR 1.03 0.9-1.15 Activated Partial Thromboplast Time 29.9 24.5-34.5 SEC Sodium Level 134 L 136-145 mmol/L Potassium Level 4.7 3.5-5.1 mmol/L Chloride Level 96 L 98-107 mmol/L Carbon Dioxide Level 29 20-31 mmol/L Anion Gap 9 5-15 Blood Urea Nitrogen 13 9-23 mg/dL Creatinine 0.68 0.550-1.02 mg/dL Glomerular Filtration Rate Calc 98 >90 mL/min BUN/Creatinine Ratio 19.1 10.0-20.0 Serum Glucose 112 H 74-106 mg/dL Calcium Level 9.8 8.7-10.4 mg/dL Troponin I High Sensitivity < 3 L </=34 ng/L B-Type Natriuretic Peptide 43.08 0-100 pg/mL SEPSIS Sepsis Screen Date sepsis recognized/suspect: Jan 08, 2025 Time Sepsis recognized/suspect: 1714 Recent Procedure: No On Antibiotic Therapy: No Respiratory Rate >20: No Heart Rate >90: No Temp<36 C (96.8 F) or >38.3 C: No SBP <90 or MAP <65 mmHG: No New Acute Mental Status Change: No Is the patient on CPAP, BIPAP,: No Physician Orders * Radiologist Consult (01/08/25 14:33) Platelet Monitoring (01/08/25 15:11) Vte Protocol Initiated (01/08/25 15:11) Heparin Per Standardized Proce (01/08/25 15:11) Discontinue All Im Injections (01/08/25 15:11) Heparin Drip/D5w 100units/Ml (01/08/25 15:15) Obtain: (01/08/25 15:11) Electrocardigram (01/08/25 17:23) Admit (01/08/25 17:36) Oxygen By Nasal Cannula (01/08/25 17:36) Stat Ekg For Chest Pain (01/08/25 17:36) Notify Md Of Changes From Base (01/08/25 17:36) Regular Diet (01/08/25 Dinner) Pantoprazole Tablet (Protonix Tablet) (01/09/25 06:00) Hydromorphone Injection (Dilaudid Inject (01/08/25 18:30) Hydrocodone-Acet 7.5/325mg Tab ([place] 7. (01/08/25 18:30) Ondansetron Hcl (Zofran) (01/08/25 18:30) Chest Xray 1 View (01/08/25 18:28) Troponin-I Hs (01/08/25 18:28) Heparin Per Pharmacy Protocol (01/08/25 18:47) Complete Blood Count (01/09/25 04:00) Comprehensive Metabolic Panel (01/09/25 04:00) Vital Signs Date Time Temp Pulse Resp B/P (MAP) Pulse Ox O2 Delivery O2 Flow Rate FiO2 01/08/25 18:00 90 18 162/72 01/08/25 17:15 82 01/08/25 17:12 81 20 150/60 (90) 99 01/08/25 17:12 81 20 150/60 01/08/25 17:12 81 20 99 Room Air* 0 21 01/08/25 12:32 97.0 82 18 143/84 96 97.0 Laboratory Tests Test 01/08/25 14:54 White Blood Count 4.9 10^3/uL (4.4-10.8) Medications Medications Dose Ordered Sig/Alida Route Start Time Stop Time Status Last Admin Dose Admin Heparin Sodium (Porcine) 5,000 units ONCE ONCE IV 01/08/25 15:15 01/08/25 15:16 DC 01/08/25 18:43 5,000 UNITS Heparin Sodium/ Dextrose 250 ml @ 14 mls/hr [id number] IV 01/08/25 15:15 01/08/25 18:43 14 MLS/HR Hydromorphone HCl 1 mg ONCE ONCE IV 01/08/25 18:00 01/08/25 18:01 DC 01/08/25 18:00 1 MG Morphine Sulfate 4 mg ONCE ONCE IV 01/08/25 14:45 01/08/25 14:46 DC 01/08/25 17:12 4 MG Ondansetron HCl 4 mg ONCE ONCE IV 01/08/25 14:45 01/08/25 14:46 DC 01/08/25 16:57 4 MG Ondansetron HCl 4 mg ONCE ONCE IV 01/08/25 18:00 01/08/25 18:01 DC 01/08/25 18:04 4 MG Pantoprazole Sodium 40 mg ONCE ONCE PO 01/08/25 18:30 01/08/25 18:44 DC 01/08/25 18:59 40 MG Assessment/Plan Assessment/Plan Bilateral proximal DVT R/o PE H/o anxiety - on heparin drip - CT angio chest pending - Dilaudid as needed for pain - Ativan as needed for anxiety Goals of care discussed with the patient and her for over 90 minutes. Code status: Full code Time spent: 31 minutes Plan discussed with Dr. Chen Plan discussed with: Patient, Spouse, Other (RN) My Orders Orders - PANCHITO BROWN RESIDENT Procedure Category Date Status Time Admit ADMIT 01/08/25 Transmitted 17:36 Oxygen By Nasal RT 01/08/25 Transmitted Cannula 17:36 Stat Ekg For Chest BIPIN 01/08/25 In Process Pain 17:36 Notify Md Of Changes BIPIN 01/08/25 In Process From Base 17:36 Regular Diet DIET 01/08/25 Transmitted Dinner Pantoprazole Tablet PHA 01/09/25 In Process (Protonix Tablet) 06:00 Hydromorphone PHA 01/08/25 In Process Injection (Dilaudid 18:30 Hydrocodone-Acet PHA 01/08/25 In Process 7.5/325mg Tab ([place] 18:30 Ondansetron Hcl PHA 01/08/25 In Process (Zofran) 18:30 Chest Xray 1 View XY 01/08/25 Taken 18:28 Troponin-I Hs LAB 01/08/25 Logged 18:28 Complete Blood Count LAB 01/09/25 Verified 04:00 Comprehensive LAB 01/09/25 Verified Metabolic Panel 04:00 Date of Service: Jan 08, 2025 Billing Provider: VIDYA CHEN MD Common Visit Codes: 76944-BDOQPCB INP/OBS CARE (HIGH) Secondary Visit Codes: 06740-[id number] CARE PLAN 30 MINUTES PANCHITO BROWN RESIDENT Jan 08, 2025 19:09 VIDYA CHEN MD Jan 09, 2025 23:43
[2025-01-08 19:35] VITALS: O2SAT 86
--- NOTE | 2025-01-08 20:01 | DVH ---
EXAM: XY CHEST XRAY 1 VIEW HISTORY: SOB TECHNIQUE: 1 view of the chest COMPARISON: CT CHEST WITHOUT CONTRAST on DOS: 12/30/24 FINDINGS/IMPRESSION: LUNGS: No pleural effusion, consolidation, or pneumothorax. Minimal possible peripheral interstitial edema. MEDIASTINUM: Unremarkable. BONES: No acute osseous abnormality. Sequelae of age-indeterminate fracture deformity of the right proximal humerus. OTHER: None.
[2025-01-08] MEDS: LORazepam 0.5 MG TAB PO PRN (20:39)
[2025-01-08] MEDS: HYDROcodone-ACET 7.5/325MG TAB PO PRN (20:39)
[2025-01-08] MEDS: IOHEXOL 350 MG/ML 100ML IJ ONE (21:20)
--- NOTE | 2025-01-08 21:51 | DVH ---
EXAM: CT CT ANGIO CHEST CONTRAST HISTORY: B/l DVT, right axis deivation on EKG, r/o PE TECHNIQUE: CT angiogram was performed. CT scans at this facility use dose modulation, iterative reconstruction, and/or weight based dosing when appropriate to reduce radiation dose to as low as reasonably achievable. Coronal and sagittal reformations and maximum intensity projection images were created from the transaxial source data by the applied technologist and workstation, as well as 3-D volume rendered images with MIPs. COMPARISON: CT CHEST WITHOUT CONTRAST on DOS: 12/30/24 FINDINGS: [LOWER NECK]: Unremarkable [LYMPH NODES/MEDIASTINUM]: No abnormal lymph nodes by CT size criteria [CARDIOVASCULAR]: Mild cardiomegaly No pericardial effusion. No aneurysmal dilatation of the great vessels. Coronary artery calcifications. [PULMONARY ARTERIES]: Pulmonary emboli located within the right interlobar artery. No definitive pulmonary emboli in the segmental to subsegmental pulmonary arteries. Prominence of the main pulmonary artery suggestive of pulmonary hypertension. No evidence of elevated right heart pressures. [UPPER ABDOMEN]: Pelf-ce-xofhbtxi stool burden. Correlate for constipation. [MUSCULOSKELETAL]: No acute fracture or aggressive focal osseous lesion. Multilevel degenerative change of the visualized spine. prior healed right posterior rib fractures. Degenerative change of the glenohumeral joints. Prior healed rib fractures [CHEST WALL]: Unremarkable. [LUNG PARENCHYMA/PLEURAL SPACE]: Atelectasis in bilateral lung bases. No pleural effusion or pneumothorax. IMPRESSION: 1. Pulmonary emboli located within the right interlobar artery. 2. No definitive pulmonary emboli in the segmental to subsegmental pulmonary arteries. 3. Prominence of the main pulmonary artery suggestive of pulmonary hypertension. 4. No evidence of elevated right heart pressures.
[2025-01-08] MEDS: HYDROmorphone HCL 2 MG/ML VL/or syr IV PRN (23:45)
[2025-01-08] MEDS: ONDANSETRON HCL 4 MG/2 ML VIAL IV PRN (23:45)
[2025-01-09] MEDS: diphenhydrAMINE HCL 50 MG/1 ML VL ONE (00:07)
[2025-01-09 01:36] LABS: INR 1.08 (0.9-1.15); Prothrombin Time 11.4 sec (9.3-11.8)
[2025-01-09 01:45] LABS: Partial Thromboplastin Time 77.7 SEC (24.5-34.5)
[2025-01-09] MEDS: HEPARIN DRIP/D5W 100UNITS/ML 250 ML IV SCH ×3 (02:16→23:22)
[2025-01-09] MEDS: PANTOPRAZOLE 40 MG TAB PO SCH (06:02)
[2025-01-09 07:17] LABS: Alanine Aminotransferase 12 U/L (7-40); Albumin 4.2 g/dL (3.2-4.8); Anion Gap 7 (5-15); BUN/Creatinine Ratio 26.5 (10.0-20.0); Blood Urea Nitrogen 18 mg/dL (9-23); Calcium 9.2 mg/dL (8.7-10.4); Carbon Dioxide 29 mmol/L (20-31); Chloride 100 mmol/L (98-107); Glucose 94 mg/dL (74-106); Potassium 4.0 mmol/L (3.5-5.1); Total Protein 7.9 g/dL (5.7-8.2)
[2025-01-09 07:18] LABS: Bilirubin, Total 0.5 mg/dL (0.2-1.0)
[2025-01-09 07:28] LABS: Alkaline Phosphatase 118 U/L (46-116); Sodium 136 mmol/L (136-145)
[2025-01-09 07:32] LABS: Mean Corpuscular Volume 110.4 fL (80.0-100.0); Nucleated Red Blood Cells % 0.1 %
[2025-01-09 07:35] LABS: Hematocrit 40.7 % (36.0-46.0); Hemoglobin 14.1 g/dL (12.2-16.2); Mean Corpuscular Hemoglobin 38.3 pg (28.0-32.0)
[2025-01-09 08:00] VITALS: PULSE 80; RESP 16; O2SAT 94
[2025-01-09] MEDS: OXYCODONE W/ ACETAMINOPHEN 5/325MG TABLET PO PRN ×2 (09:44→13:56)
[2025-01-09] MEDS ORDERED: ACETAMINOPHEN 325 MG TAB PO PRN (10:00)
[2025-01-09 10:21] LABS: INR 1.05 (0.9-1.15); Partial Thromboplastin Time 52.4 SEC (24.5-34.5); Prothrombin Time 11.1 sec (9.3-11.8)
[2025-01-09 12:25] LABS: Cannabinoid Screen, Urine Pos (NEGATIVE); Opiate Scree,Urine Neg (NEGATIVE)
[2025-01-09 12:47] LABS: Barbiturate Scree,Urine Neg (NEGATIVE); Phencyclidine Screen, Urine Neg (NEGATIVE)
[2025-01-09 12:48] LABS: Amphetamine Screen, Urine Neg (NEGATIVE); Benzodiazephine Screen, Urine Pos (NEGATIVE); Cocaine Screen, Urine Neg (NEGATIVE)
[2025-01-09 13:12] VITALS: BP 145/84; PULSE 84; RESP 16; TEMP 97.9; O2SAT 96
[2025-01-09 14:37] LABS: INR 1.04 (0.9-1.15); Partial Thromboplastin Time 41.5 SEC (24.5-34.5); Prothrombin Time 11.0 sec (9.3-11.8)
[2025-01-09] MEDS ORDERED: PERCOT PO (16:22)
[2025-01-09] MEDS ORDERED: POTA-220 PO (16:22)
[2025-01-09] MEDS ORDERED: PROP1TAB51 PO (16:22)
[2025-01-09] MEDS ORDERED: BUMEX2MG PO (16:22)
--- NOTE | 2025-01-09 16:30 | CONS ---
Pharmacy Clinical Information: INCREASE HEPARIN RATE TO 14 ML/HR DUE TO APTT OF 41.5 PER RX PROTOCOL. NEXT APTT ON 01/09 AT 2230. RHYS SANCHEZ CONFIRMED AND READ BACK SUZIE RAO PHARMACIST Jan 09, 2025 16:30
[2025-01-09 16:50] VITALS: BP 137/60; PULSE 77; RESP 16; TEMP 97.8; O2SAT 95
--- NOTE | 2025-01-09 17:30 | DVHPNRES ---
Progress Note Date Seen: Jan 09, 2025 Resident Creating Document: MAK DUMONT RESIDENT Medical Necessity Reason Pt with a Central, PICC or Fol: No Subjective Review of Systems Patient is a 64-year-old female with a medical history of anxiety, major depressive disorder, recent left tibial fracture status post ORIF presented to the hospital after she underwent a bilateral lower extremity venous duplex today at [facility] which showed bilateral DVT. Patient reports about 9 weeks ago she had a mechanical fall following which she had a left tibial fracture and underwent ORIF surgery In [facility] and was discharged home. She started to notice bilateral lower extremity swelling a 3 weeks ago which initially she thought was likely due to dependent edema but since it was getting worse and painful than she contacted her PCP who recommended getting a lower extremity venous duplex today which showed right and left femoral vein, popliteal vein thrombosis. patient also complained of shortness of breath and chest pain yesterday. Initial EKG showed sinus rhythm with right axis deviation, probable right ventricular hypertrophy but she did not have any tachycardia. patient also states she had a left humerus fracture 1 year ago. patient states she goes to a pain clinic For generalized leg pain. patient also had symptoms of UTI with dysuria, burning sensation in urine and frequency was started on ciprofloxacin 3 days ago in clinic. Past medical history: Anxiety, pulmonary nodule, major depressive disorder Surgical history: Left tibia ORIF Social history: Patient has 10 pack smoking history, currently smokes, currently drinks glass of wine every day, denies drug use Home medications: Propranolol 10 mg b.i.d., Percocet 10 Constitutional: Denies weight loss, fever and chills. HEENT: Denies changes in vision and hearing. Respiratory: Denies shortness of breath and cough Cardiovascular: chest discomfort GI: Mild abdominal distention, reports improvement on abdominal discomfort. : dysuria, urinary frequency, burning sensation of urine Musculoskeletal: Denies myalgias and joint pain Skin: Denies rash and pruritus. Neurological: Denies dizziness, headache, vision or hearing problems 01/09/2025: Patient seen at bedside. Patient complained of pain greater in the left leg than the right leg and increased swelling. Patient states after Dilaudid patient gets itchy, patient had a recent UTI started ciprofloxacin p.o. b.i.d. 3 days ago and is continued on it. Social service consult placed for home health, physical therapy. Patient was started on heparin drip as CT angio shows PE. Patient was on 2 L oxygen. Objective vital signs Vital Sign Date Time Temp Pulse Resp B/P (MAP) Pulse Ox O2 Delivery O2 Flow Rate FiO2 01/09/25 16:50 97.8 77 16 137/60 (85) 95 97.8 01/09/25 12:20 Room Air* 0 21 Total Intake and Output 01/08/25 01/08/25 01/09/25 15:00 23:00 07:00 Output Total 600 ml Balance -600 ml medications Current Medications Medications Dose Ordered Sig/Alida Route Start Time Stop Time Status Last Admin Dose Admin Pantoprazole Sodium 40 mg DAILY@0600 PO 01/09/25 06:00 01/09/25 06:02 40 MG Ondansetron HCl 4 mg Q6HPRN PRN IV 01/08/25 18:30 01/09/25 06:09 4 MG Lorazepam 1 mg Q8HP PRN PO 01/08/25 20:00 01/09/25 16:28 1 MG Acetaminophen 650 mg Q4HP PRN PO 01/09/25 10:00 Oxycodone/ Acetaminophen 2 tab TID PRN PO 01/09/25 12:00 01/09/25 13:56 2 TAB Ciprofloxacin 500 mg Q12HR PO 01/09/25 22:00 Heparin Sodium/ Dextrose 250 ml @ 14 mls/hr [id number] IV 01/09/25 16:15 01/09/25 16:34 14 MLS/HR Examination General: Patient alert and oriented in person, place and time. Patient following commands. HEENT: Normocephalic, atraumatic, moist mucous membranes Respiratory/pulmonary: Clear lungs bilaterally, vesicular murmurs present in almost all lung de la rosa, no associated crackles or wheezes. Cardiovascular: Normal heart sounds S1 and S2 with no associated murmurs Abdomen: Abdomen nondistended, there is no pain to palpation in any of the abdominal quadrants, no palpable masses. Extremities: Bilateral erythematous and pitting edema Peripheral Pulses: 3+ Radial (R). 3+ Radial (L). 3+ Dorsalis pedis (R). 3+ Dorsalis pedis(L) Skin: No rashes or pruritus, there is no sacral edema present at this time. Neurological: Intact cranial nerves with no focal neurologic deficits laboratory and microbiology Laboratory Tests 01/09/25 06:45 Test 01/09/25 06:45 Range/Units Serum Glucose 94 74-106 mg/dL Problem List/Assessment/Plan Problem List/Assessment/Plan Bilateral proximal DVT pulmonary embolism Major depressive disorder H/o anxiety 5 mm pulmonary nodule Acute complicated UTI - on heparin drip - CT angio chest showed PE in right internal lobar artery - positive DVT in right and left femoral vein, popliteal vein, calf trifurcation - Percocet 10-325 t.i.d. - Ativan as needed for anxiety - PESI score- 63, very low risk - follow-up outpatient for pulmonary nodule - p.o. ciprofloxacin 500 mg b.i.d. - PPI prophylaxis: Protonix DVT prophylaxis: heparin Goals of care addressed with the patient for more than 27 minutes: Full code status Case discussed with Dr. Chen , patient and nurse Plan discussed with: Patient My Orders My Orders Orders - MAK DUMONT Procedure Category Date Status Time Acetaminophen Tablet PHA 01/09/25 In Process (Tylenol Tablet) 10:00 Ciprofloxacin Tablet PHA 01/09/25 In Process (Cipro Tablet) 22:00 * Soccer Player CONS 01/09/25 Transmitted Consult Date of Service: Jan 09, 2025 Billing Provider: VIDYA CHEN MD Common Visit Codes: [id number] INP/OBS CARE(HIGH) MAK DUMONT RESIDENT Jan 09, 2025 17:30 VIDYA CHEN MD Jan 09, 2025 23:44
--- NOTE | 2025-01-09 18:30 | DVHSR ---
APPROVED REPORT EXAM: Two-dimensional and M-mode echocardiogram with Doppler and color Doppler. Blood Pressure: 145/75 mmHg INDICATION PE RISK FACTORS Obesity: Height: 62, Weight: 174 DIMENSIONS LVDd 4.4 (3.8-5.7cm) LA (2D) (1.9-4.0cm) Aortic Root 3.0 (2.0-3.7cm) LVDs 2.9 (2.5-4.0cm) LA (MM) (1.9-4.0cm) Aortic Cusp Exc 1.7 (1.5-2.0cm) EF (%) 60.0 (55-70%) Rt. Atrium 4.2 (1.9-4.0cm) Asc. Aorta cm IVSd 1.0 (0.7-1.1cm) RV (D) 4.5 (1.8-2.4cm) PWd 1.0 (0.7-1.1cm) Mitral Valve Mitral Mitral Stenosis E wave 0.83m/s MV Mean GR. mmHg A wave 0.89m/s MV Peak GR. mmHg E/A ratio 0.9 2D MVA cm2 DECEL Time 197ms PRESS 1/2 Time ms Aortic Valve Aortic Valve Aortic Stenosis V1 1.10m/s AO Mean GR. 5mmHg V2 1.60m/s AO Peak GR. 10mmHg LVOT Diameter 2.0 (1.8-2.4cm) Doppler BEBETO 2.16cm2 Pulmonic Valve V2 1.18m/s Other Information Quality : Technically Limited Rhythm : Technically limited study due to patient position.body habitus. pt sitting up and talking Conclusion Technically good study. Sinus rhythm. Left atrial enlargement. Concentric LVH. Valves are normal. Left ventricular systolic function is preserved. EF is 60% with normal RV function. Dopplers unremarkable. No pericardial effusion masses or vegetations.
[2025-01-09] MEDS: MORPHINE SULFATE INJ 2 MG/ml SYRG IV ONE (19:30)
[2025-01-09 20:00] VITALS: PULSE 77
[2025-01-09] MEDS: CIPROFLOXACIN HCL 500 MG TAB PO SCH (20:59)
[2025-01-09] MEDS: MELATONIN 5 MG TAB PO SCH (20:59)
[2025-01-09] MEDS: HYDROmorphone HCL 2 MG/ML VL/or syr IV ONE (20:59)
[2025-01-09 21:00] VITALS: BP 142/93; PULSE 77; RESP 18; TEMP 97.7; O2SAT 94
[2025-01-09 23:02] LABS: INR 1.07 (0.9-1.15); Prothrombin Time 11.3 sec (9.3-11.8)
[2025-01-09 23:06] LABS: Partial Thromboplastin Time 76.3 SEC (24.5-34.5)
[2025-01-10] VITALS (9 sets, daily range): BP systolic 122–152; BP diastolic 53–95; PULSE 78–94; RESP 16–18; TEMP 97.1–98.2; O2SAT 93–100
[2025-01-10] MEDS: OXYCODONE W/ ACETAMINOPHEN 5/325MG TABLET PO ONE ×2 (04:08→04:09)
[2025-01-10 06:51] LABS: Hematocrit 38.0 % (36.0-46.0); Hemoglobin 13.1 g/dL (12.2-16.2); Mean Corpuscular Hemoglobin 38.5 pg (28.0-32.0); Mean Corpuscular Volume 111.3 fL (80.0-100.0); Nucleated Red Blood Cells % 0.0 %
[2025-01-10 06:58] LABS: Chloride 103 mmol/L (98-107); Potassium 3.8 mmol/L (3.5-5.1)
[2025-01-10 06:59] LABS: Anion Gap 9 (5-15); Calcium 9.3 mg/dL (8.7-10.4); Carbon Dioxide 24 mmol/L (20-31)
[2025-01-10 07:04] LABS: BUN/Creatinine Ratio 14.5 (10.0-20.0); Glucose 104 mg/dL (74-106); Sodium 136 mmol/L (136-145)
[2025-01-10 07:05] LABS: Blood Urea Nitrogen 8 mg/dL (9-23)
[2025-01-10 07:08] LABS: INR 1.06 (0.9-1.15); Partial Thromboplastin Time 54.1 SEC (24.5-34.5); Prothrombin Time 11.2 sec (9.3-11.8)
[2025-01-10 11:41] LABS: INR 1.04 (0.9-1.15); Partial Thromboplastin Time 42.1 SEC (24.5-34.5); Prothrombin Time 11.0 sec (9.3-11.8)
--- NOTE | 2025-01-10 12:26 | CONS ---
Pharmacy Clinical Information: INCREASE HEPARIN RATE TO 14 ML/HR DUE TO APTT OF 42.1 PER RX PROTOCOL. NEXT APTT ON 01/10 AT 1830. RHYS DILLARD CONFIRMED AND READ BACK SUZIE RAO PHARMACIST Jan 10, 2025 12:26
[2025-01-10] MEDS: HEPARIN DRIP/D5W 100UNITS/ML 250 ML IV SCH (12:29)
--- NOTE | 2025-01-10 14:27 | DVH ---
Bilateral lower extremity venous duplex Clinical History: dvt Comparison: VAS VENOUS LOWER EXTREM BILAT (DVT) on DOS: 01/08/25, US BILAT LOWER DVT on DOS: 05/20/23 Technique: Duplex Doppler evaluation of the deep venous systems of both lower extremities from the common femoral veins to the popliteal veins including color Doppler and spectral/pulsed waveform analysis was performed. Findings: RIGHT SIDE: The common femoral vein demonstrates thrombus in the right common femoral vein with noncompressibility. There is compressibility/patency of the great saphenous vein at the proximal thigh. The femoral vein demonstrates occlusive thrombus in the proximal, and mid, femoral vein. Occlusive thrombus is noted in the distal right femoral vein. The deep femoral vein demonstrates appropriate compressibility and waveform variability. The popliteal vein demonstrates occlusive thrombus in the right popliteal vein. There is normal compressibility at the tibioperoneal trunk. LEFT SIDE: The common femoral vein demonstrates appropriate compressibility and waveform variability. There is compressibility/patency of the great saphenous vein at the proximal thigh. The femoral vein demonstrates appropriate compressibility and waveform variability. The deep femoral vein demonstrates appropriate compressibility and waveform variability. The popliteal vein demonstrates appropriate compressibility and waveform variability. There is normal compressibility at the tibioperoneal trunk. Jaimee JOINER notified Impression: 1. Nonocclusive thrombus in the right common femoral vein. Mostly occlusive thrombus in the proximal mid and distal femoral vein with occlusive thrombus in the popliteal vein. 2. No deep venous thrombosis in the left lower extremity.
--- NOTE | 2025-01-10 15:40 | DVHPNRES ---
Progress Note Date Seen: Jan 10, 2025 Resident Creating Document: MAK DUMONT RESIDENT Medical Necessity Reason Pt with a Central, PICC or Fol: No Subjective Review of Systems Patient is a 64-year-old female with a medical history of anxiety, major depressive disorder, recent left tibial fracture status post ORIF presented to the hospital after she underwent a bilateral lower extremity venous duplex today at [facility] which showed bilateral DVT. Patient reports about 9 weeks ago she had a mechanical fall following which she had a left tibial fracture and underwent ORIF surgery In [facility] and was discharged home. She started to notice bilateral lower extremity swelling a 3 weeks ago which initially she thought was likely due to dependent edema but since it was getting worse and painful than she contacted her PCP who recommended getting a lower extremity venous duplex today which showed right and left femoral vein, popliteal vein thrombosis. patient also complained of shortness of breath and chest pain yesterday. Initial EKG showed sinus rhythm with right axis deviation, probable right ventricular hypertrophy but she did not have any tachycardia. patient also states she had a left humerus fracture 1 year ago. patient states she goes to a pain clinic For generalized leg pain. patient also had symptoms of UTI with dysuria, burning sensation in urine and frequency was started on ciprofloxacin 3 days ago in clinic. Past medical history: Anxiety, pulmonary nodule, major depressive disorder Surgical history: Left tibia ORIF Social history: Patient has 10 pack smoking history, currently smokes, currently drinks glass of wine every day, denies drug use Home medications: Propranolol 10 mg b.i.d., Percocet 10 01/09/2025: Patient seen at bedside. Patient complained of pain greater in the left leg than the right leg and increased swelling. Patient states after Dilaudid patient gets itchy, patient had a recent UTI started ciprofloxacin p.o. b.i.d. 3 days ago and is continued on it. Social service consult placed for home health, physical therapy. Patient was started on heparin drip as CT angio shows PE. Patient was on 2 L oxygen. 01/10/25: patient seen at bedside. Patient complained of bilateral leg pain, left arm pain. Bilateral DVT showed Nonocclusive thrombus in the right common femoral vein. Mostly occlusive thrombus in the proximal mid and distal femoral vein with occlusive thrombus in the popliteal vein. radiology consulted, Cardiology consulted for possible thrombectomy. Objective vital signs Vital Sign Date Time Temp Pulse Resp B/P (MAP) Pulse Ox O2 Delivery O2 Flow Rate FiO2 01/10/25 12:35 98.1 80 16 143/78 (99) 94 98.1 01/10/25 08:00 Room Air* 0 21 Total Intake and Output 01/09/25 01/09/25 01/10/25 15:00 23:00 07:00 Intake Total 60 ml 450 ml 394 ml Output Total 500 ml 1800 ml Balance 60 ml -50 ml -1406 ml medications Current Medications Medications Dose Ordered Sig/Alida Route Start Time Stop Time Status Last Admin Dose Admin Pantoprazole Sodium 40 mg DAILY@0600 PO 01/09/25 06:00 01/10/25 05:52 40 MG Ondansetron HCl 4 mg Q6HPRN PRN IV 01/08/25 18:30 01/10/25 08:36 4 MG Lorazepam 1 mg Q8HP PRN PO 01/08/25 20:00 01/10/25 12:29 1 MG Acetaminophen 650 mg Q4HP PRN PO 01/09/25 10:00 Oxycodone/ Acetaminophen 2 tab TID PRN PO 01/09/25 12:00 01/10/25 14:57 2 TAB Ciprofloxacin 500 mg Q12HR PO 01/09/25 22:00 01/10/25 08:32 500 MG Melatonin 20 mg HS PO 01/09/25 22:00 Hold 01/09/25 20:59 20 MG Heparin Sodium/ Dextrose 250 ml @ 14 mls/hr [id number] IV 01/10/25 12:30 01/10/25 12:29 14 MLS/HR Trazodone HCl 50 mg HS PO 01/10/25 22:00 UNV Gabapentin 100 mg DAILY PO 01/11/25 10:00 UNV Polyethylene Glycol 17 gm DAILYPRN PRN PO 01/10/25 15:30 UNV Examination General: Patient alert and oriented in person, place and time. Patient following commands. HEENT: Normocephalic, atraumatic, moist mucous membranes Respiratory/pulmonary: Clear lungs bilaterally, vesicular murmurs present in almost all lung de la rosa, no associated crackles or wheezes. Cardiovascular: Normal heart sounds S1 and S2 with no associated murmurs Abdomen: Abdomen nondistended, there is no pain to palpation in any of the abdominal quadrants, no palpable masses. Extremities: Bilateral erythematous and pitting edema Peripheral Pulses: 3+ Radial (R). 3+ Radial (L). 3+ Dorsalis pedis (R). 3+ Dorsalis pedis(L) Skin: No rashes or pruritus, there is no sacral edema present at this time. Neurological: Intact cranial nerves with no focal neurologic deficits laboratory and microbiology Laboratory Tests 01/10/25 05:11 Test 01/10/25 05:11 Range/Units Serum Glucose 104 74-106 mg/dL Problem List/Assessment/Plan Problem List/Assessment/Plan Bilateral proximal DVT pulmonary embolism Major depressive disorder H/o anxiety 5 mm pulmonary nodule Acute complicated UTI - on heparin drip - CT angio chest showed PE in right internal lobar artery - positive DVT in right and left femoral vein, popliteal vein, calf trifurcation - Percocet 10-325 t.i.d. - Ativan as needed for anxiety - PESI score- 63, very low risk - follow-up outpatient for pulmonary nodule - p.o. ciprofloxacin 500 mg b.i.d. PPI prophylaxis: Protonix DVT prophylaxis: heparin Goals of care addressed with the patient for more than 27 minutes: Full code status Case discussed with Dr. Chen , patient and nurse Plan discussed with: Patient My Orders My Orders Orders - MAK DUMONT RESIDENT Procedure Category Date Status Time Bilat Lower Dvt US 01/10/25 Resulted 12:32 * Radiologist Consult CONS 01/10/25 Transmitted 15:03 Trazodone Hcl PHA 01/10/25 In Process (Desyrel) 22:00 Gabapentin Capsule PHA 01/11/25 In Process (Neurontin Capsule) 10:00 Polyethylene Glycol PHA 01/10/25 In Process 17g Powder (Miralax 15:30 Date of Service: Jan 10, 2025 Billing Provider: VIDYA CHEN MD Common Visit Codes: [id number] INP/OBS CARE(HIGH) MAK DUMONT RESIDENT Jan 10, 2025 15:40 VIDYA CHEN MD Jan 10, 2025 23:16
[2025-01-10] MEDS: OXYCODONE W/ ACETAMINOPHEN 5/325MG TABLET ONE (17:46)
[2025-01-10 19:35] LABS: INR 1.04 (0.9-1.15); Partial Thromboplastin Time 67.5 SEC (24.5-34.5); Prothrombin Time 11.0 sec (9.3-11.8)
[2025-01-11 01:00] VITALS: BP 126/70; PULSE 71; RESP 18; TEMP 98.2; O2SAT 95
[2025-01-11 03:36] LABS: Hematocrit 36.6 % (36.0-46.0); Hemoglobin 12.6 g/dL (12.2-16.2); Mean Corpuscular Hemoglobin 38.1 pg (28.0-32.0); Mean Corpuscular Volume 110.7 fL (80.0-100.0); Nucleated Red Blood Cells % 0.2 %
[2025-01-11 03:51] LABS: INR 1.07 (0.9-1.15); Partial Thromboplastin Time 47.3 SEC (24.5-34.5); Prothrombin Time 11.3 sec (9.3-11.8)
[2025-01-11 03:54] LABS: Alanine Aminotransferase 11 U/L (7-40); Albumin 3.8 g/dL (3.2-4.8); Alkaline Phosphatase 96 U/L (46-116); Anion Gap 8 (5-15); BUN/Creatinine Ratio 22.4 (10.0-20.0); Blood Urea Nitrogen 11 mg/dL (9-23); Calcium 8.9 mg/dL (8.7-10.4); Carbon Dioxide 25 mmol/L (20-31); Chloride 103 mmol/L (98-107); Glucose 91 mg/dL (74-106); Potassium 3.8 mmol/L (3.5-5.1); Sodium 136 mmol/L (136-145); Total Protein 7.1 g/dL (5.7-8.2)
[2025-01-11 03:55] LABS: Bilirubin, Total 0.6 mg/dL (0.2-1.0)
[2025-01-11] MEDS: HEPARIN DRIP/D5W 100UNITS/ML 250 ML IV SCH ×2 (04:44→12:51)
[2025-01-11 05:00] VITALS: BP 126/67; PULSE 86; RESP 18; TEMP 98.1; O2SAT 96
[2025-01-11 05:03] LABS: Macrocytosis Slight
[2025-01-11 08:30] VITALS: BP 123/94; PULSE 79; RESP 20; TEMP 98.9; O2SAT 95
--- NOTE | 2025-01-11 09:57 | DVHINCON2 ---
Date Seen: Jan 11, 2025 Referring Physician MD [place] resident Reason for Consultation Thrombectomy evaluation History of Present Illness This is a 64-year-old female patient who presents to the emergency room with chief complaint of worsening bilateral lower extremity swelling. The patient reports that she began to notice worsening swelling in her bilateral lower extremities about one week ago. She denies any pain or redness. The patient reports that she sustained a mechanical fall approximately nine weeks ago which left her with a left tibia fracture. She then underwent a left tibia ORIF. Since then, she states that she has not been ambulatory per her orthopedic surgeons request. She reports notifying her surgeon of the worsening swelling in her legs in which he sent her to in outpatient radiology site to undergo a bilateral lower extremity ultrasound which found DVTs. He then directed her to come to the emergency room for further evaluation. Imaging done at this facility has revealed pulmonary emboli located within the right interlobar artery with no evidence of elevated right heart pressures. A bilateral lower extremity venous study reveals no DVT in the left lower extremity but nonocclusive thrombus in the right common femoral vein. Mostly occlusive thrombus in the proximal mid and distal femoral vein with occlusive thrombus in the popliteal vein. Cardiology has been consulted at this time for a mechanical thrombectomy evaluation. The patient denies any cardiac symptoms at time of assessment. Initial twelve lead electrocardiogram done upon admission reveals normal sinus rhythm without any significant ST segment changes. Significant past medical history includes fatty liver disease, cervical cancer in 2006 status post total hysterectomy, anxiety, tobacco use, and obesity. Past Medical History Past medical history reviewed. No other significant than mentioned above. Past Surgical History Total hysterectomy in 2006 Left Tibia ORIF Bilateral carpal tunnel repair Left humerus ORIF Family History: FHx: leukemia G8 MOTHER Family History Family history reviewed. Social History The patient has a 15 pack-year history, smokes approximately half a pack per day Admits to daily alcohol use (approximately one bottle of wine per day) Admits to occasional marijuana use Allergies: Coded Allergies: Prochlorperazine (Verified Allergy, Severe, Dystonia, 05/28/23) Home Meds Active Scripts Apixaban Base (ELIQUIS) 5 Mg Tab, 10 MG PO BID for 7 Days, #14 TAB 10MG BID X 7 DAYS THEN 5MG PO BID FOR AT LEAST 6 MONTHS FOR DVT/PE TREATMENT Prov:CALLUM DRIVER RESIDENT 01/11/25 Apixaban Base (ELIQUIS) 5 Mg Tab, 5 MG PO BID for 90 Days, #180 TAB 1 Refill Prov:VILLACALLUM RESIDENT 01/11/25 Doxycycline Monohydrate (Doxycycline Monohydrate) 100 Mg Tab, 100 MG PO BID for 45 Days, #90 TAB Prov:DAI AZEVEDO RESIDENT 05/29/23 Oxycodone W/ Acetaminophen (Percocet 5/325MG) 1 Tab Tb, 1 TAB PO BID for 14 Days, #28 TAB Prov:ANTOINE CURRY MD 05/29/23 Fluoxetine HCl (Fluoxetine HCl) 20 Mg Cap, 20 MG PO DAILY for 90 Days, #90 CAP Prov:DAI AZEVEDO RESIDENT 05/29/23 Naproxen (Naproxen) 500 Mg Tab, 500 MG PO Q6HP PRN for 10 Days, #40 TAB Prov:NEETA FAITH DO 05/23/23 Trazodone Hcl (Trazodone Hcl) 50 Mg Tab, 50 MG PO HS for 30 Days, #30 TAB 1 Refill Prov:NEETA FAITH DO 05/23/23 Reported Medications Potassium Chloride (Klor-Con M20) 20 Meq Tab, 20 MEQ PO BID, TAB 01/09/25 Bumetanide (Bumex) 2 Mg Tab, 1 MG PO BID 01/09/25 Propranolol HCl (Propranolol Hydrochloride) 10 Mg Tab, 10 MG PO BID, TAB 01/09/25 Oxycodone W/ Acetaminophen (Percocet 5/325MG) 1 Tab Tb, 1 TAB PO TID, #90 TAB 01/09/25 Propranolol Hcl (Inderal La) 60 Mg Cap, 20 MG PO DAILY, CAP 05/20/23 Hydrochlorothiazide (Hydrochlorothiazide) 25 Mg Tab, 1 TAB PO DAILY, #30 TAB 5 Refills 05/20/23 Ibuprofen Micronized (Ibuprofen) 800 Mg Tab, 800 MG PO TIDP PRN for MODERATE PAIN, TAB 04/14/16 Carisoprodol (Soma) 350 Mg Tab, 350 MG PO BIDP PRN for FOR MUSCLE SPASM, TAB 03/20/15 Lorazepam (Ativan) 0.5 Mg Tab, 1 MG OR BIDP PRN for ANXIETY, TAB 03/20/15 Gabapentin (Neurontin) 100 Mg Cap, 1 CAP PO TID, #90 CAP 2 Refills 03/20/15 Home Meds Home medications reviewed. Current Medications Current Medications Medications (Trade) Dose Ordered Sig/Alida Route PRN Reason Start Time Stop Time Status Last Admin Heparin Sodium/ Dextrose 250 ml @ 14 mls/hr [id number] IV 01/10/25 12:30 01/11/25 04:04 DC 01/10/25 12:29 Trazodone HCl (Desyrel) 50 mg HS PO 01/10/25 22:00 01/11/25 02:48 Gabapentin (Neurontin Capsule) 100 mg DAILY PO 01/11/25 10:00 01/10/25 19:10 DC Polyethylene Glycol (Miralax 17GM Powder) 17 gm DAILYPRN PRN PO FOR CONSTIPATION 01/10/25 15:30 Heparin Sodium/ Dextrose 250 ml @ 16 mls/hr [id number] IV 01/11/25 04:15 01/11/25 04:44 Review of Systems Constitutional: No symptom reported Ears, Nose, & Throat: No symptom reported Eyes: No symptom reported Neurological: No symptoms reported Pulmonary/Respiratory: No symptoms reported Cardiovascular: Bilateral lower extremity edema Gastrointestinal: No symptom reported Genitourinary: No symptom reported Musculoskeletal: No symptom reported Skin: No symptom reported Psychiatric: No symptom reported Endocrine: No symptom reported Hematologic/Lymphatic: No symptom reported Vital Signs Vital Signs Date Time Temp Pulse Resp B/P (MAP) Pulse Ox O2 Delivery O2 Flow Rate FiO2 01/11/25 08:30 98.9 79 20 123/94 (104) 95 98.9 01/11/25 08:00 Room Air* 0 21 Physical Exam General Appearance: Cooperative. Well-developed. Well-nourished. No acute distress. Pulmonary/Respiratory: Clear, bilateral breaths sounds. Cardiovascular/Chest: Regular rate and rhythm. Peripheral Pulses: 2+ Radial (R). 2+ Radial (L). 2+ Pedal (R). 2+ Pedal (L) Abdominal Exam: Normal bowel sounds. Ankle Exam: 2+pitting edema Lower extremities: 2+ pitting edema Neuro/Mental Status: A/OX4, coherent. Thoughts/Psych: Normal thought pattern. Appropriate mood and affect. Good judgment and insight. Appearance: No acute distress. Skin Exam: Normal inspection. Normal color. Warm and dry. Labs/Diagnostic Data Labs Test 01/11/25 02:34 01/08/25 19:09 01/08/25 17:03 01/08/25 14:54 Range/Units White Blood Count 4.6 4.4-10.8 10^3/uL Red Blood Count 3.31 L 4.0-5.20 10^6/uL Hemoglobin 12.6 12.2-16.2 g/dL Hematocrit 36.6 36.0-46.0 % Mean Corpuscular Volume 110.7 H 80.0-100.0 fL Mean Corpuscular Hemoglobin 38.1 H 28.0-32.0 pg Mean Corpuscular Hemoglobin Concent 34.4 32.0-36.0 g/dL Red Cell Distribution Width 15.2 H 11.8-14.3 % Platelet Count 257 140-450 10^3/uL Mean Platelet Volume 7.5 6.9-10.8 fL Neutrophils (%) (Auto) 60.4 37.0-80.0 % Lymphocytes (%) (Auto) 24.4 10.0-50.0 % Monocytes (%) (Auto) 12.5 H 0.0-12.0 % Eosinophils (%) (Auto) 2.0 0.0-7.0 % Basophils (%) (Auto) 0.7 0.0-2.0 % Neutrophils # (Auto) 2.8 1.6-8.6 10 ^3/uL Lymphocytes # (Auto) 1.1 0.4-5.4 10 ^3/uL Monocytes # (Auto) 0.6 0-1.3 10 ^3/uL Eosinophils # (Auto) 0.1 0-0.8 10 ^3/uL Basophils # (Auto) 0 0-0.2 10 ^3/uL Nucleated Red Blood Cells 0.2 % Platelet Estimate Adequate Macrocytosis Slight Prothrombin Time 11.3 9.3-11.8 sec Prothrombin Time INR 1.07 0.9-1.15 Activated Partial Thromboplast Time 47.3 H 24.5-34.5 SEC Sodium Level 136 136-145 mmol/L Potassium Level 3.8 3.5-5.1 mmol/L Chloride Level 103 98-107 mmol/L Carbon Dioxide Level 25 20-31 mmol/L Anion Gap 8 5-15 Blood Urea Nitrogen 11 9-23 mg/dL Creatinine 0.49 L 0.550-1.02 mg/dL Glomerular Filtration Rate Calc 106 >90 mL/min BUN/Creatinine Ratio 22.4 H 10.0-20.0 Serum Glucose 91 74-106 mg/dL Calcium Level 8.9 8.7-10.4 mg/dL Total Bilirubin 0.6 0.2-1.0 mg/dL Aspartate Amino Transferase (AST) 18 13-40 U/L Alanine Aminotransferase (ALT) 11 7-40 U/L Alkaline Phosphatase 96 46-116 U/L Total Protein 7.1 5.7-8.2 g/dL Albumin 3.8 3.2-4.8 g/dL Troponin I High Sensitivity 4 </=34 ng/L Urine Color Yellow Yellow Urine Clarity Clear Clear Urine pH 7.0 5.0-9.0 Urine Specific [place] 1.023 1.001-1.035 Urine Protein Trace H Negative Urine Ketones Trace Negative Urine Blood Negative Negative /uL Urine Nitrite Negative Negative Urine Bilirubin Negative Negative Urine Urobilinogen Normal Negative mg/dL Urine Leukocyte Esterase Negative Negative /uL Urine RBC 4 0 - 4 /hpf Urine Microscopic WBC 1 0-5 /HPF Urine Squamous Epithelial Cells Few <5 /hpf Urine Bacteria None seen None Seen /hpf Urine Hyaline Casts Few 0 - 2 /lpf Urine Glucose Normal Normal mg/dL Urine Opiates Screen Neg NEGATIVE Urine Fentanyl Screen Neg NEGATIVE Urine Barbiturates Screen Neg NEGATIVE Urine Phencyclidine Screen Neg NEGATIVE Urine Amphetamines Screen Neg NEGATIVE Urine Benzodiazepines Screen Pos NEGATIVE Urine Cocaine Screen Neg NEGATIVE Urine Cannabinoids Screen Pos NEGATIVE B-Type Natriuretic Peptide 43.08 0-100 pg/mL Assessment Pulmonary emboli without RV strain Right lower extremity DVT Anxiety Depression Tobacco use Obesity Plan/Recommendation We will continue with the following plan/recommendations (Dr. Acevedo): Plan discussed with . A transthoracic echocardiogram reveals an EF of 60% without RV strain. Pulmonary embolism severity index (PESI score): 93 points (class III). At the time of assessment, the patient is hemodynamically stable, and on room air with oxygen saturation 96%. The patient's shows no signs of hemodynamic compromise. Regarding the patient's right lower extremity DVT, the patient denies any pain upon ambulation. Bilateral lower extremities noted to be slightly swollen (only right leg has DVT per imaging report). After lengthy discussion with patient, we will proceed with medical management. There is no immediate indication for mechanical thrombectomy at this time. The patient should be initiated on oral anticoagulation with DOAC therapy as this is first-line treatment of acute DVT/PE. There is no further inpatient cardiac workup indicated at this time. Thank you for allowing us to care for this patient. Please call with any questions or concerns. Critical care time spent: 44 minutes This medical document was created using an electronic medical record system with voice recognition software and computerized dictation system. Although this document has been carefully reviewed, there might still be some phonetic and typographical errors. Occasional wrong-word or ``sound-alike substitutions may have occurred due to the inherent limitations of voice recognition software. These areas are purely typographical due to imperfections of the software programs and do not reflect any compromise in the patient's medical care. Please read the chart carefully and recognize, using context, where these substitutions have occurred. Plan discussed with: Patient NYHA Physical activity limitations: NA Date of Service: Jan 11, 2025 Billing Provider: MARCY NASSAR Cardiology Common Codes: 89955-WGZTULY INP/OBS CARE (High) Cardiology Consultation Codes: 15300-[id number] CONSULT <45MIN MARCY NASSAR Jan 11, 2025 09:57
[2025-01-11] MEDS ORDERED: GABAPENTIN 100 MG CAP PO SCH (10:00)
[2025-01-11] MEDS: POLYETHYLENE GLYCOL 17 GM PWDR PO PRN (10:22)
[2025-01-11 11:49] LABS: INR 1.08 (0.9-1.15); Prothrombin Time 11.4 sec (9.3-11.8)
[2025-01-11 11:52] LABS: Partial Thromboplastin Time 86.9 SEC (24.5-34.5)
[2025-01-11 12:20] LABS: Albumin 4.2 g/dL (3.2-4.8); Alkaline Phosphatase 98 U/L (46-116); Anion Gap 9 (5-15); BUN/Creatinine Ratio 18.2 (10.0-20.0); Bilirubin, Total 0.6 mg/dL (0.2-1.0); Blood Urea Nitrogen 10 mg/dL (9-23); Calcium 9.5 mg/dL (8.7-10.4); Carbon Dioxide 26 mmol/L (20-31); Chloride 102 mmol/L (98-107); Glucose 102 mg/dL (74-106); Potassium 3.9 mmol/L (3.5-5.1); Sodium 137 mmol/L (136-145); Total Protein 7.9 g/dL (5.7-8.2)
[2025-01-11 12:21] LABS: Alanine Aminotransferase < 9 U/L (7-40)
[2025-01-11 12:30] VITALS: BP 108/58; PULSE 88; RESP 21; TEMP 98.9; O2SAT 96
--- NOTE | 2025-01-11 12:46 | CONS ---
Pharmacy Clinical Information: DECREASE HEPARIN RATE TO 14 ML/HR DUE TO APTT OF 86.9 ON 01/11 1059 PER RX P ROTOCOL. NEXT APTT 6 HOURS FROM THE START OF NEW HEPARIN RATE. RHYS CLEMENTS CONFIRMED AND READ BACK SUZIE RAO PHARMACIST Jan 11, 2025 12:46
[2025-01-11] MEDS ORDERED: APIXABAN 5 MG TAB PO ONE (15:30)
[2025-01-11] MEDS ORDERED: APIX5TAB PO (15:33)
[2025-01-11 15:39] VITALS: TEMP 37.2
[2025-01-11] MEDS ORDERED: APIXABAN 5 MG TAB ONE (16:00)
[2025-01-11] MEDS: APIXABAN 5 MG TAB PO ONE (16:03)
--- NOTE | 2025-01-11 16:28 | DVHDSRES ---
Discharge Summary Date of Admission Resident Creating Document: CALLUM DRIVER Jan 08, 2025 at 17:36 Date of Discharge: Jan 11, 2025 Labs/Diagnostic Data: Laboratory Results Test 01/11/25 10:59 01/11/25 02:34 01/08/25 19:09 01/08/25 17:03 Prothrombin Time 11.4 sec (9.3-11.8) Prothrombin Time INR 1.08 (0.9-1.15) Activated Partial Thromboplast Time 86.9 SEC (24.5-34.5) Sodium Level 137 mmol/L (136-145) Potassium Level 3.9 mmol/L (3.5-5.1) Chloride Level 102 mmol/L (98-107) Carbon Dioxide Level 26 mmol/L (20-31) Anion Gap 9 (5-15) Blood Urea Nitrogen 10 mg/dL (9-23) Creatinine 0.55 mg/dL (0.550-1.02) Glomerular Filtration Rate Calc 103 mL/min (>90) BUN/Creatinine Ratio 18.2 (10.0-20.0) Serum Glucose 102 mg/dL (74-106) Calcium Level 9.5 mg/dL (8.7-10.4) Total Bilirubin 0.6 mg/dL (0.2-1.0) Aspartate Amino Transferase (AST) 19 U/L (13-40) Alanine Aminotransferase (ALT) < 9 U/L (7-40) Alkaline Phosphatase 98 U/L (46-116) Total Protein 7.9 g/dL (5.7-8.2) Albumin 4.2 g/dL (3.2-4.8) White Blood Count 4.6 10^3/uL (4.4-10.8) Red Blood Count 3.31 10^6/uL (4.0-5.20) Hemoglobin 12.6 g/dL (12.2-16.2) Hematocrit 36.6 % (36.0-46.0) Mean Corpuscular Volume 110.7 fL (80.0-100.0) Mean Corpuscular Hemoglobin 38.1 pg (28.0-32.0) Mean Corpuscular Hemoglobin Concent 34.4 g/dL (32.0-36.0) Red Cell Distribution Width 15.2 % (11.8-14.3) Platelet Count 257 10^3/uL (140-450) Mean Platelet Volume 7.5 fL (6.9-10.8) Neutrophils (%) (Auto) 60.4 % (37.0-80.0) Lymphocytes (%) (Auto) 24.4 % (10.0-50.0) Monocytes (%) (Auto) 12.5 % (0.0-12.0) Eosinophils (%) (Auto) 2.0 % (0.0-7.0) Basophils (%) (Auto) 0.7 % (0.0-2.0) Neutrophils # (Auto) 2.8 10 ^3/uL (1.6-8.6) Lymphocytes # (Auto) 1.1 10 ^3/uL (0.4-5.4) Monocytes # (Auto) 0.6 10 ^3/uL (0-1.3) Eosinophils # (Auto) 0.1 10 ^3/uL (0-0.8) Basophils # (Auto) 0 10 ^3/uL (0-0.2) Nucleated Red Blood Cells 0.2 % Platelet Estimate Adequate Macrocytosis Slight Hemoglobin A1c 5.2 % A1C (<5.7) Troponin I High Sensitivity 4 ng/L (</=34) Urine Color Yellow (Yellow) Urine Clarity Clear (Clear) Urine pH 7.0 (5.0-9.0) Urine Specific [place] 1.023 (1.001-1.035) Urine Protein Trace (Negative) Urine Ketones Trace (Negative) Urine Blood Negative /uL (Negative) Urine Nitrite Negative (Negative) Urine Bilirubin Negative (Negative) Urine Urobilinogen Normal mg/dL (Negative) Urine Leukocyte Esterase Negative /uL (Negative) Urine RBC 4 /hpf (0 - 4) Urine Microscopic WBC 1 /HPF (0-5) Urine Squamous Epithelial Cells Few /hpf (<5) Urine Bacteria None seen /hpf (None Seen) Urine Hyaline Casts Few /lpf (0 - 2) Urine Glucose Normal mg/dL (Normal) Urine Opiates Screen Neg (NEGATIVE) Urine Fentanyl Screen Neg (NEGATIVE) Urine Barbiturates Screen Neg (NEGATIVE) Urine Phencyclidine Screen Neg (NEGATIVE) Urine Amphetamines Screen Neg (NEGATIVE) Urine Benzodiazepines Screen Pos (NEGATIVE) Urine Cocaine Screen Neg (NEGATIVE) Urine Cannabinoids Screen Pos (NEGATIVE) Test 01/08/25 14:54 B-Type Natriuretic Peptide 43.08 pg/mL (0-100) Other Laboratory Tests 01/11/25 10:59 01/11/25 02:34 Brief Hx & Hospital Course: 64-year-old female with a medical history of anxiety, recent left tibial fracture status post ORIF presented to the hospital after she underwent a bilateral lower extremity venous duplex at [facility] which showed bilateral DVT. Patient reports about 9 weeks ago she had a mechanical fall following which she had a left tibial fracture and underwent a or if and was discharged home. She started to notice bilateral lower extremity swelling a few weeks ago which initially she thought was likely due to dependent edema but since it was getting worse she contacted her PCP who recommended getting a lower extremity venous duplex which showed right and left femoral vein, popliteal vein thrombosis. On presenting to the ER, patient had 2 L of oxygen through nasal cannula. Patient was started on heparin drip. CT angio revealed pulmonary embolism located within the right interlobar artery. Intervention Radiology was consulted echocardiogram was done. Tropes and BNP were ordered. Because of no evidence of right heart strain, no intervention including mechanical thrombectomy was done and patient was treated with IV heparin. Later Cardiology was consulted for need for possible mechanical thrombectomy for DVT. Cardiology mentioned that patient has improvement in the swelling and is able to walk, and anticoagulation should be adequate treatment for her DVT. Later in the hospital, patient was able to walk and mentioned improvement in his symptoms. Patient is currently on room air. Patient was started on Eliquis and later heparin was discontinued. At the time of discharge, patient had stable vitals, no new complaints. Discharge plan was discussed with the patient and patient will follow up with PCP/Cardiology within 1-2 weeks. Patient was discharged on Eliquis 10 mg for b.i.d. for seven days and 5 mg b.i.d. for six months. Patient was explained of the risk of bleeding associated with anticoagulation, patient understood. Patient was also advised to wear compression stockings. Examination General Appearance: Alert, Oriented X3, Cooperative, No acute distress HEENT: EOMI Respiratory: Clear to auscultation, Normal air movement Cardiovascular: Regular rate, Normal S1, Normal S2 Abdominal: Normal bowel sounds Extremities: No cyanosis, No edema, Normal pulses, No tenderness/swelling, mild bilateral lower extremity swelling, improved Skin: No rashes, No breakdown Neuro: Normal speech and tone Consults/Reason for consult Cardiology Interventional Radiology Operations or Procedures [address] [address] Ph: [phone] DIAGNOSTIC IMAGING Diagnostic Imaging Report : [id number] Signed PATIENT: SIA MATA ACCT: [id number] UNIT: [id number] : 1960 LOC: OVERFLOW ROOM / BED: [facility]-ER / A AGE / SEX: 64 / F ADM STATUS: ADM IN SERVICE 46 ORDERING PHYSICIAN: PANCHITO BROWN RESIDENT PROCEDURE(s): CTACH - CT ANGIO CHEST CONTRAST REASON: B/l DVT, right axis deivation on EKG, r/o PE ORDER NUMBER(s): [id number], ACCESSION NUMBER(s): [id number] EXAM: CT CT ANGIO CHEST CONTRAST HISTORY: B/l DVT, right axis deivation on EKG, r/o PE TECHNIQUE: CT angiogram was performed. CT scans at this facility use dose modulation, iterative reconstruction, and/or weight based dosing when appropriate to reduce radiation dose to as low as reasonably achievable. Coronal and sagittal reformations and maximum intensity projection images were created from the transaxial source data by the phlebotomy technologist and workstation, as well as 3-D volume rendered images with MIPs. COMPARISON: CT CHEST WITHOUT CONTRAST on DOS: 12/30/24 FINDINGS: [LOWER NECK]: Unremarkable [LYMPH NODES/MEDIASTINUM]: No abnormal lymph nodes by CT size criteria [CARDIOVASCULAR]: Mild cardiomegaly No pericardial effusion. No aneurysmal dilatation of the great vessels. Coronary artery calcifications. [PULMONARY ARTERIES]: Pulmonary emboli located within the right interlobar artery. No definitive pulmonary emboli in the segmental to subsegmental pulmonary arteries. Prominence of the main pulmonary artery suggestive of pulmonary hypertension. No evidence of elevated right heart pressures. [UPPER ABDOMEN]: Ecsg-xc-yzzgmtci stool burden. Correlate for constipation. [MUSCULOSKELETAL]: No acute fracture or aggressive focal osseous lesion. Multilevel degenerative change of the visualized spine. prior healed right posterior rib fractures. Degenerative change of the glenohumeral joints. Prior healed rib fractures [CHEST WALL]: Unremarkable. [LUNG PARENCHYMA/PLEURAL SPACE]: Atelectasis in bilateral lung bases. No pleural effusion or pneumothorax. IMPRESSION: 1. Pulmonary emboli located within the right interlobar artery. 2. No definitive pulmonary emboli in the segmental to subsegmental pulmonary arteries. 3. Prominence of the main pulmonary artery suggestive of pulmonary hypertension. 4. No evidence of elevated right heart pressures. ATED BY: ABDIRASHID MORA MD DICTATED DATE/TIME: 01/08/252147 SIGNED BY: ABDIRASHID MORA MD SIGNED DATE/TIME: 01/08/252147 CC: [place] [id number] Ph: [phone] DIAGNOSTIC IMAGING Diagnostic Imaging Report : [id number] Signed PATIENT: SIA MATA ACCT: [id number] UNIT: [id number] : 1960 LOC: [facility] ROOM / BED: [facility] / A AGE / SEX: 64 / F ADM STATUS: ADM IN SERVICE 31 ORDERING PHYSICIAN: MAK DUMONT RESIDENT PROCEDURE(s): BLDVT - BiLat Lower DVT REASON: dvt ORDER NUMBER(s): [id number], ACCESSION NUMBER(s): [id number] Bilateral lower extremity venous duplex Clinical History: dvt Comparison: VAS VENOUS LOWER EXTREM BILAT (DVT) on DOS: 01/08/25, US BILAT LOWER DVT on DOS: 05/20/23 Technique: Duplex Doppler evaluation of the deep venous systems of both lower extremities from the common femoral veins to the popliteal veins including color Doppler and spectral/pulsed waveform analysis was performed. Findings: RIGHT SIDE: The common femoral vein demonstrates thrombus in the right common femoral vein with noncompressibility. There is compressibility/patency of the great saphenous vein at the proximal thigh. The femoral vein demonstrates occlusive thrombus in the proximal, and mid, femoral vein. Occlusive thrombus is noted in the distal right femoral vein. The deep femoral vein demonstrates appropriate compressibility and waveform variability. The popliteal vein demonstrates occlusive thrombus in the right popliteal vein. There is normal compressibility at the tibioperoneal trunk. LEFT SIDE: The common femoral vein demonstrates appropriate compressibility and waveform variability. There is compressibility/patency of the great saphenous vein at the proximal thigh. The femoral vein demonstrates appropriate compressibility and waveform variability. The deep femoral vein demonstrates appropriate compressibility and waveform variability. The popliteal vein demonstrates appropriate compressibility and waveform variability. There is normal compressibility at the tibioperoneal trunk. Jaimee JOINER notified Impression: 1. Nonocclusive thrombus in the right common femoral vein. Mostly occlusive thrombus in the proximal mid and distal femoral vein with occlusive thrombus in the popliteal vein. 2. No deep venous thrombosis in the left lower extremity. ATED BY: LEIDA LORD Jr., DO DICTATED DATE/TIME: 01/10/251424 SIGNED BY: LEIDA LORD Jr., SIGNED DATE/TIME: 01/10/251424 CC: Condition at Discharge: Stable Final Diagnosis/Problems List Acute provoked bilateral DVT Acute provoked PE, low risk Recent UTI Anxiety Depression 5 mm pulmonary nodule Discharge Disposition: Home Discharge Instruct/Medications Diet: Cardiac 2g Na,low cholest Activity: No Restrictions, As Tolerated Follow Up/Referral: f/u with PCP/DC clinic within 1 day f/u with Cardiology within 2 weeks Medications: sent to pharmacy Scheduled Apixaban Base (Eliquis), 5 MG PO BID Apixaban Base (Eliquis), 10 MG PO BID Bumetanide (Bumex), 1 MG PO BID, (Reported) Doxycycline Monohydrate (Doxycycline Monohydrate), 100 MG PO BID Fluoxetine HCl (Fluoxetine HCl), 20 MG PO DAILY Gabapentin (Neurontin), 1 CAP PO TID, (Reported) Hydrochlorothiazide (Hydrochlorothiazide), 1 TAB PO DAILY, (Reported) Oxycodone W/ Acetaminophen (Percocet 5/325MG), 1 TAB PO BID Oxycodone W/ Acetaminophen (Percocet 5/325MG), 1 TAB PO TID, (Reported) Potassium Chloride (Klor-Con M20), 20 MEQ PO BID, (Reported) Propranolol HCl (Propranolol Hydrochloride), 10 MG PO BID, (Reported) Propranolol Hcl (Inderal La), 20 MG PO DAILY, (Reported) Trazodone Hcl (Trazodone Hcl), 50 MG PO HS Scheduled PRN Carisoprodol (Soma), 350 MG PO BIDP PRN for FOR MUSCLE SPASM, (Reported) Ibuprofen Micronized (Ibuprofen), 800 MG PO TIDP PRN for MODERATE PAIN, (Reported) Lorazepam (Ativan), 1 MG OR BIDP PRN for ANXIETY, (Reported) Naproxen (Naproxen), 500 MG PO Q6HP PRN Discharge Statement: "Patient was advised to return to the ER or call 911 if any headaches, dizziness, shortness of breath, chest pain, abdominal pain, bleeding, fevers, or worsening of medical condition. Patient was counseled about treatment plan, medications, possible side effects, patientverbalized understanding. All questions were answered to the best of my ability. This discharge took greater then 30 minutes in planning, reviewing documentation, counseling the patient, and discussing with other team members." ASSESSMENT ASSESSMENT Assessment Acute DVT Acute PE Date of Service: Jan 11, 2025 Billing Provider: ZENON JIANG MD Common Visit Codes: 95941-ZVS/OBS DISCH DAY >30min CALLUM DRIVER Jan 11, 2025 16:28 ZENON JIANG MD Jan 11, 2025 17:24
== END 2025-01-11 16:40 | disposition home or self-care (01) | DRG 299 ==
LOC: ER 12:31 → OVERFLOW 17:36 → WEST WING 01-09 12:15 → TELE-WESTW 01-09 23:53 → EAST 01-10 14:00 → TELE-EAST 01-11 01:58
PROVIDERS: ADMIT Internal Medicine; ATTEND Internal Medicine
DX: I82.411 Acute embolism and thrombosis of right femoral vein (principal); I26.99 Other pulmonary embolism without acute cor pulmonale; I82.439 Acute embolism and thrombosis of unspecified popliteal vein; F32.A Depression, unspecified; E66.9 Obesity, unspecified; K76.0 Fatty (change of) liver, not elsewhere classified; F41.9 Anxiety disorder, unspecified; R91.1 Solitary pulmonary nodule; Z68.32 Body mass index [BMI] 32.0-32.9, adult; Z80.6 Family history of leukemia; Z85.41 Personal history of malignant neoplasm of cervix uteri; Z87.891 Personal history of nicotine dependence; Z90.710 Acquired absence of both cervix and uterus; Z88.8 Allergy status to other drugs, medicaments and biological substances; Z79.899 Other long term (current) drug therapy
CPT/HCPCS: 36415; 71045; 71275; 80048; 80053; 80307; 81001; 83036; 83880; 84484; 85025; 85610; 85730; 93005; 93306; 93970; 96374; 96375; 97110; 97116; 97163; 97530; G0378; J2405